=== PATIENT | female | born 1970 | race Caucasian/White ===

== ENCOUNTER 2017-04-02 22:16 | Emergency (ER) | payer MEDICARE, OTHER ==
[~2017-04-02] VITALS: Ht 157.5 cm; Wt 110.0 kg
[2017-04-02] MEDS ORDERED: TRAZ-136 PO (22:31)
[2017-04-02] MEDS ORDERED: NAPR500T3 PO (22:31)
[2017-04-02] MEDS ORDERED: GLIP10TA6 PO (22:31)
[2017-04-02] MEDS ORDERED: LOSA50TA20 PO (22:31)
[2017-04-02] MEDS ORDERED: FLUO20CA8 PO (22:31)
[2017-04-02] MEDS ORDERED: TOPR50TA PO (22:31)
[2017-04-02] MEDS ORDERED: BUTA1TAB PO (22:31)
[2017-04-02] MEDS ORDERED: METF500T13 PO (22:31)
[2017-04-02] MEDS ORDERED: OXYC1TAB23 PO (22:31)
[2017-04-02] MEDS ORDERED: PRAZ1CAP PO (22:31)
[2017-04-02] MEDS ORDERED: PEPC1TAB4 PO (22:31)
[2017-04-02] MEDS ORDERED: CETI10TA PO (22:31)
[2017-04-02] MEDS ORDERED: ALBU17IN INH (22:31)
[2017-04-03] MEDS ORDERED: ALBUTEROL 90 MCG/ACT 8GM HFA INHALER INH ONE (06:15)
[2017-04-03 06:34] VITALS: BP 126/72
--- NOTE | 2017-04-03 07:58 | REP ---
Chest x-ray: Two views. History: Cough . Comparison study: No comparison . Findings: The lungs are well inflated and free of infiltrate. The pleural angles are sharp. The heart size is normal. Pulmonary vasculature is not increased. No significant bony abnormality is seen. Impression: Negative chest x-ray. Signed by Froylan Preston MD 04/03/2017 08:18 A
== END 2017-04-03 06:37 | disposition home or self-care (01) ==
LOC: M ED 22:16
DX: J20.9 Acute bronchitis, unspecified (principal)

== ENCOUNTER → 2018-06-25 | Outpatient (REF) | payer MEDICARE | LOC: M SFHCLERA 10:51 | DX: J02.9 Acute pharyngitis, unspecified (principal) ==

== ENCOUNTER → 2018-11-04 | Outpatient (REF) | payer MEDICARE, OTHER ==
[~2018-11-04] MED LIST: ALBU17IN INH; BUTA1TAB PO; CETI10TA PO; FLUO20CA8 PO; GLIP10TA6 PO; LOSA50TA88 PO; METF500T13 PO; NAPR-885 PO; OXYC1TAB23 PO; PEPC1TAB5 PO; PRAZ1CAP PO; TOPR50TA PO; TRAZ-163 PO
[2018-11-04 22:00] LABS: CHLAMYDIA DNA AMPLIFICATION NEGATIVE (NEGATIVE); GC DNA AMPLIFICATION NEGATIVE (NEGATIVE)
== END ==
LOC: M SFHCLERA 17:34
PROVIDERS: ATTEND Physician Assistant Medical
DX: J32.0 Chronic maxillary sinusitis (principal)

== ENCOUNTER → 2018-11-29 | Outpatient (CLI) | payer MEDICARE, MEDICAID ==
--- NOTE | 2018-11-29 16:39 | REP ---
Clinical: Injury. Technique: AP and lateral views of the left tibia / fibula. Findings: No acute fracture dislocation. Skeletal structures, joint spaces, and surrounding soft tissues are normal. Impression: No acute fracture or dislocation. Electronically Signed by Manoj Herring MD 11/29/2018 04:32 P
== END ==
LOC: M LRY 16:20
PROVIDERS: ATTEND Nurse Practitioner Family
DX: S89.92XA Unspecified injury of left lower leg, initial encounter (principal); X58.XXXA Exposure to other specified factors, initial encounter; Y92.9 Unspecified place or not applicable
CPT/HCPCS: 73590; G0463

== ENCOUNTER → 2019-08-05 | Outpatient (REF) | payer MEDICARE, MEDICAID ==
[~2019-08-05] MED LIST changes: +FLUO20CA20 PO; -FLUO20CA8 PO; -TRAZ-163 PO; +TRAZ-257 PO
[2019-08-05 12:34] LABS: BASO # 0.1 10^3/uL (0.0-0.2); BASO % 0.9 % (0.0-1.0); EOS # 0.2 10^3/uL (0.0-0.5); EOS % 2.9 % (0.0-3.0); HEMATOCRIT 40.1 % (36.0-47.0); HEMOGLOBIN 13.1 g/dl (12.0-15.5); LYMPH # 1.4 10^3/uL (1.5-5.0); MEAN CORPUSCULAR HEMOGLOBIN 31.3 pg (27.0-33.0); MEAN CORPUSCULAR HGB CONC 32.7 g/dl (32.0-36.5); MEAN CORPUSCULAR VOLUME 95.9 fl (80.0-96.0); MONO # 0.4 10^3/uL (0.0-0.8); MONO % 6.8 % (0.0-5.0); NEUTROPHILS # 3.4 10^3/uL (1.5-8.5); PLATELET COUNT, AUTOMATED 220 10^3/uL (150-450); RED BLOOD COUNT 4.18 10^6/uL (4.00-5.40); WHITE BLOOD COUNT 5.5 10^3/uL (4.0-10.0)
[2019-08-05 12:50] LABS: BLOOD UREA NITROGEN 10 MG/DL (7-18); CREATININE FOR GFR 0.74 MG/DL (0.55-1.30); GLUCOSE, FASTING 225 MG/DL (70-100)
[2019-08-05 12:51] LABS: ALBUMIN 3.6 GM/DL (3.2-5.2); ALT/SGPT 20 U/L (12-78); BILIRUBIN,TOTAL 0.5 MG/DL (0.2-1.0); CALCIUM LEVEL 8.4 MG/DL (8.5-10.1); CARBON DIOXIDE LEVEL 28 MEQ/L (21-32); CHLORIDE LEVEL 105 MEQ/L (98-107); CHOLESTEROL LEVEL 232 MG/DL (<200); FREE T4 1.11 NG/DL (0.76-1.46); GLOMERULAR FILTRATION RATE > 60.0 (>58); HDL CHOLESTEROL 40 MG/DL (>40); LDL CHOLESTEROL 146 MG/DL (<100); NON-HDL-C 192 MG/DL; POTASSIUM SERUM 3.5 MEQ/L (3.5-5.1); SODIUM LEVEL 140 MEQ/L (136-145); TOTAL PROTEIN 6.7 GM/DL (6.4-8.2); TRIGLYCERIDES LEVEL 229 MG/DL (<150)
[2019-08-05 12:57] LABS: HEMOGLOBIN A1c 8.4 %
[2019-08-05 13:21] LABS: MAU/CREAT RATIO 19.6 MCG/MG (0.0-30.0)
== END ==
LOC: M SFHCPLAZ 09:44
PROVIDERS: ATTEND Physician Assistant Medical
DX: E11.3593 Type 2 diabetes mellitus with proliferative diabetic retinopathy without macular edema, bilateral (principal); I10 Essential (primary) hypertension; E78.00 Pure hypercholesterolemia, unspecified; F43.10 Post-traumatic stress disorder, unspecified
CPT/HCPCS: 36415; 80053; 80061; 82043; 83036; 84439; 84443; 85025; G0463

== ENCOUNTER 2019-11-10 09:44 | Emergency (ER) | payer MEDICARE, MEDICAID ==
[~2019-11-10] VITALS: Ht 157.5 cm; Wt 116.0 kg
[2019-11-10] MEDS ORDERED: NS 1,000 ML IV ONE (10:15)
[2019-11-10 10:53] LABS: BASO % 0.7 % (0.0-1.0); EOS # 0.2 10^3/uL (0.0-0.5); EOS % 3.3 % (0.0-3.0); HEMOGLOBIN 12.2 g/dl (12.0-15.5); LYMPH # 1.3 10^3/uL (1.5-5.0); MEAN CORPUSCULAR HEMOGLOBIN 32.4 pg (27.0-33.0); MEAN CORPUSCULAR VOLUME 98.4 fl (80.0-96.0); MONO # 0.4 10^3/uL (0.0-0.8); MONO % 6.9 % (0.0-5.0); NEUTROPHILS # 3.8 10^3/uL (1.5-8.5); NEUTROPHILS % 65.4 % (36.0-66.0); PLATELET COUNT, AUTOMATED 231 10^3/uL (150-450); RED BLOOD COUNT 3.76 10^6/uL (4.00-5.40); WHITE BLOOD COUNT 5.8 10^3/uL (4.0-10.0)
[2019-11-10 11:23] LABS: ALBUMIN 3.2 GM/DL (3.2-5.2); ALT/SGPT 32 U/L (12-78); BILIRUBIN,DIRECT 0.1 MG/DL (0.0-0.2); BILIRUBIN,TOTAL 0.4 MG/DL (0.2-1.0); BLOOD UREA NITROGEN 7 MG/DL (7-18); CALCIUM LEVEL 8.2 MG/DL (8.5-10.1); CARBON DIOXIDE LEVEL 27 MEQ/L (21-32); CHLORIDE LEVEL 106 MEQ/L (98-107); CK-MB VALUE MASS 1.1 NG/ML (<3.6); CPK CREATINE PHOSPHOKINASE 24 U/L (26-192); CREATININE FOR GFR 0.67 MG/DL (0.55-1.30); FREE T4 1.09 NG/DL (0.76-1.46); GLOMERULAR FILTRATION RATE > 60.0 (>58); GLUCOSE, FASTING 207 MG/DL (70-100); MAGNESIUM LEVEL 1.9 MG/DL (1.8-2.4); MB/CK RELATIVE INDEX 4.58 (< OR =4); POTASSIUM SERUM 4.1 MEQ/L (3.5-5.1); SODIUM LEVEL 139 MEQ/L (136-145); TOTAL PROTEIN 6.4 GM/DL (6.4-8.2); TROPONIN I < 0.02 NG/ML (< 0.10)
--- NOTE | 2019-11-10 11:25 | REP ---
Portable chest x-ray: Sitting AP view. History: Syncope. Comparison chest x-ray: April 03, 2017. Findings: The lungs are well inflated and free of infiltrate. Pleural angles are sharp. Heart size is normal. Pulmonary vasculature is not increased. No significant bony abnormality. Impression: Negative portable chest x-ray. Electronically Signed by Froylan Preston MD 11/10/2019 11:17 A
--- NOTE | 2019-11-10 11:36 | REP ---
Head CT without contrast: History: Syncope. Comparison study: No comparison study. CT findings: Bone window settings demonstrate an intact bony calvarium. There is no evidence of skull fracture or incidental bony calvarial lesion. The visualized paranasal sinuses appear clear. No intraorbital abnormality is seen. On soft tissue window setting images; the lateral, third, and fourth ventricles are normal in size and position. Fuentes-white differentiation pattern is normal above and below the tentorium. There are is no evidence of intracranial hemorrhage. No mass, edema, infarction, or midline shift is seen. No extra-axial fluid collection is appreciated. Impression: Negative noncontrast head CT. Electronically Signed by Froylan Preston MD 11/10/2019 11:27 A
[2019-11-10 12:05] VITALS: BP 145/70
[2019-11-10] MEDS ORDERED: LAMO100T3 (12:26)
[2019-11-10] MEDS ORDERED: SITA50TAB (12:26)
[2019-11-10] MEDS ORDERED: METO1TAB7 (12:26)
[2019-11-10] MEDS ORDERED: DIAZ10TA2 (12:26)
[2019-11-10] MEDS ORDERED: ROSU40TA4 (12:26)
[2019-11-10] MEDS ORDERED: QUET100T2 (12:26)
[2019-11-10] MEDS ORDERED: OMEP-218 (12:26)
--- NOTE | 2019-11-11 08:25 | ECGEPIP ---
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
== END 2019-11-10 12:32 | disposition home or self-care (01) ==
LOC: M ED 09:44
DX: R42 Dizziness and giddiness (principal); R55 Syncope and collapse; E11.9 Type 2 diabetes mellitus without complications; I10 Essential (primary) hypertension; K21.9 Gastro-esophageal reflux disease without esophagitis; G43.909 Migraine, unspecified, not intractable, without status migrainosus; Z88.5 Allergy status to narcotic agent; Z88.1 Allergy status to other antibiotic agents

== ENCOUNTER → 2019-11-16 | Outpatient (CLI) | payer MEDICARE, MEDICAID ==
[~2019-11-16] MED LIST changes: +DIAZ10TA2; +LAMO100T3; +METO1TAB7; +OMEP-218; +QUET100T2; +ROSU40TA4; +SITA50TAB
[2019-11-16 19:17] LABS: APPEARANCE, URINE TURBID (CLEAR); BACTERIA, URINE AUTO 1+ (NEGATIVE); BILIRUBIN, URINE AUTO NEGATIVE (NEGATIVE); BLOOD, URINE BLOOD 3+ (NEGATIVE); COLOR, URINE AMBER (YELLOW); GLUCOSE, URINE (UA) AUTO 1+ mg/dL (NEGATIVE); KETONE, URINE AUTO TRACE mg/dL (NEGATIVE); LEUKOCYTE ESTERASE, URINE AUTO 3+ (NEGATIVE); MUCUS, URINE SMALL (NEGATIVE); NITRITE, URINE AUTO NEGATIVE (NEGATIVE); PROTEIN, URINE AUTO 1+ mg/dL (NEGATIVE); RBC, URINE AUTO 35 /HPF (0-3); SQUAMOUS EPITHELIAL CELL UR AU 4 /HPF (0-6); TRANSITIONAL EPITHELIAL AUTO 2 /HPF; UROBILINOGEN, URINE AUTO 0.2 mg/dL (0.0-2.0); WBC, URINE AUTO TNTC /HPF (0-3)
== END ==
LOC: M WHC 09:09
PROVIDERS: ATTEND Advanced Practice Midwife
DX: Z12.4 Encounter for screening for malignant neoplasm of cervix (principal); N93.8 Other specified abnormal uterine and vaginal bleeding; R30.0 Dysuria
CPT/HCPCS: 81001; 87088; 87186; 87624; G0123; G0463

== ENCOUNTER → 2019-11-27 | Outpatient (CLI) | payer MEDICARE, MEDICAID ==
--- NOTE | 2019-11-28 12:51 | REP ---
PELVIC ULTRASOUND: Real-time sonographic evaluation pelvis performed utilizing transabdominal and endovaginal technique. Bladder measures 7.7 x 5.4 cm. The uterus is enlarged and heterogeneous measuring 13.6 x 6.7 x 7.9 cm. No discrete fibroid is seen. Endometrial thickness is 13 mm. There are subcentimeter nabothian cysts in the region of the cervix. Study is limited due to patient body habitus. Right ovary measures 2.3 x 3.1 x 2.3 cm and left ovary 2.0 x 3.3 x 2.9 cm. Dominant follicle right ovary measures 2.2 cm in diameter. Doppler evaluation of the left ovary demonstrates no evidence of torsion. No Doppler evaluation was performed of the right ovary. There is a small echogenic focus in the right ovary which measures 1.1 x 1.3 x 0.7 cm. This may represent a small hemorrhagic follicle or very small dermoid. IMPRESSION: Enlarged heterogeneous uterus without a discrete fibroid seen. Endometrial thickness 13 mm. Dominant follicle right ovary 2.2 cm. Echogenic structure in the right ovary with a maximum diameter of 1.3 cm may represent a complex follicle or small dermoid.
--- NOTE | 2019-12-09 16:37 | REPMRS ---
Patient History The patient states she had a clinical breast exam in October 2019. Family history of unknown cancer at age 50 or over in maternal grandfather. 3D TOMOSYNTHESIS WAS PERFORMED. [facility] for [facility] 9.6%. RASHI Springer. Digital Woman Screen Mammo: November 27, 2019 - Exam #: [id number] Bilateral CC and MLO view(s) were taken. Technologist: nAa Luisa Mtz Technologist FINDINGS: There are scattered fibroglandular densities. There has been no change in the appearance of the mammogram from the prior studies. There is a mild amount of residual fibroglandular tissue which is fairly symmetric. There is no interval development of dominant mass, architectural distortion, or clustered microcalcification suggestive of malignancy. Assessment: BI-RADS/ACR category 1 mammogram. Negative Mammogram. Recommendation Routine screening mammogram in 1 year (for women over age 40). This mammogram was interpreted with the aid of an FDA-approved computer-aided dectection system. Electronically Signed By: Luisito Preston MD 12/09/19 [id number]
== END ==
LOC: M WHC 10:29
PROVIDERS: ATTEND Advanced Practice Midwife
DX: Z12.31 Encounter for screening mammogram for malignant neoplasm of breast (principal); N85.2 Hypertrophy of uterus; D25.9 Leiomyoma of uterus, unspecified

== ENCOUNTER → 2020-01-04 | Outpatient (REF) | payer MEDICARE, MEDICAID ==
[2020-01-04 13:48] LABS: BASO # 0.1 10^3/uL (0.0-0.2); BASO % 0.6 % (0.0-1.0); EOS # 0.2 10^3/uL (0.0-0.5); EOS % 2.3 % (0.0-3.0); HEMATOCRIT 44.2 % (36.0-47.0); LYMPH # 1.6 10^3/uL (1.5-5.0); LYMPH % 18.9 % (24.0-44.0); MEAN CORPUSCULAR HEMOGLOBIN 31.5 pg (27.0-33.0); MEAN CORPUSCULAR HGB CONC 31.7 g/dl (32.0-36.5); MEAN CORPUSCULAR VOLUME 99.3 fl (80.0-96.0); MONO # 0.5 10^3/uL (0.0-0.8); MONO % 5.9 % (0.0-5.0); NEUTROPHILS % 71.9 % (36.0-66.0); RED BLOOD COUNT 4.45 10^6/uL (4.00-5.40); WHITE BLOOD COUNT 8.4 10^3/uL (4.0-10.0)
[2020-01-04 13:56] LABS: INR 0.95; PARTIAL THROMBOPLASTIN TIME 25.1 SECONDS (25.0-38.4); PROTHROMBIN TIME 12.4 SECONDS (11.8-14.0)
[2020-01-04 16:06] LABS: ALBUMIN 3.9 GM/DL (3.2-5.2); ALT/SGPT 27 U/L (12-78); BILIRUBIN,TOTAL 0.6 MG/DL (0.2-1.0); BLOOD UREA NITROGEN 9 MG/DL (7-18); CALCIUM LEVEL 9.3 MG/DL (8.5-10.1); CARBON DIOXIDE LEVEL 25 MEQ/L (21-32); CHLORIDE LEVEL 103 MEQ/L (98-107); CREATININE FOR GFR 0.78 MG/DL (0.55-1.30); GLOMERULAR FILTRATION RATE > 60.0 (>58); GLUCOSE, FASTING 212 MG/DL (70-100); NT-PRO BNP 160 PG/ML (<125); POTASSIUM SERUM 4.8 MEQ/L (3.5-5.1); SODIUM LEVEL 136 MEQ/L (136-145); TOTAL PROTEIN 7.5 GM/DL (6.4-8.2); VITAMIN B12 LEVEL 452 PG/ML (247-911)
== END ==
LOC: M SFHCPLAZ 12:15
PROVIDERS: ATTEND Family Medicine
DX: E11.3593 Type 2 diabetes mellitus with proliferative diabetic retinopathy without macular edema, bilateral (principal); N93.9 Abnormal uterine and vaginal bleeding, unspecified
CPT/HCPCS: 36415; 80053; 82607; 83880; 85025; 85610; 85730; 93005; G0463

== ENCOUNTER → 2020-01-13 | Outpatient (REF) | payer MEDICARE, MEDICAID | LOC: M SFHCWAGY 13:05 | PROVIDERS: ATTEND Obstetrics & Gynecology | DX: N93.9 Abnormal uterine and vaginal bleeding, unspecified (principal) ==

== ENCOUNTER 2020-02-12 07:15 | Day surgery (SDC) | payer MEDICARE, MEDICAID ==
[~2020-02-12 07:15] MED LIST changes: +BUPIVACAINE HCL 0.25% 30ML VIAL As Ordered ONE; +METHYLENE BLUE 0.5% (5MG/ML) 10 ML AMP (PROVAYBLUE) As Ordered ONE; +ceFAZolin 2 GM/D5W 50 ML IV BAG (J0690 PER 500MG) As Ordered ONE; +ceFAZolin 2 GM/D5W 50 ML IV BAG (J0690 PER 500MG) ONE
[2020-02-12] MEDS ORDERED: propofoL 200 MG/20 ML VIAL As Ordered ONE (07:19)
[2020-02-12] MEDS ORDERED: LIDOCAINE 2% 100MG/5ML SDV (FOR ANES.) As Ordered ONE (07:19)
[2020-02-12] MEDS ORDERED: ROCURONIUM BROMIDE 50 MG/5 ML VIAL As Ordered ONE ×3 (07:19→09:36)
[2020-02-12] MEDS ORDERED: dexameTHASONE 4 MG/ML 1ML VIAL (J1100 PER 1MG) As Ordered ONE (07:19)
[2020-02-12] MEDS ORDERED: fentaNYL 250 MCG/5 ML INJECTION (J3010) As Ordered ONE (07:20)
[2020-02-12] MEDS ORDERED: MIDAZOLAM INJ 2MG/2ML VIAL (J2250 PER 1MG) As Ordered ONE (07:21)
[2020-02-12] MEDS ORDERED: ACETAMINOPHEN 1000MG 100ML IV BTL (OFIRMEV) (J0131 PER 10MG) As Ordered ONE (09:30)
[2020-02-12] MEDS ORDERED: ESMOLOL INJ 100MG/10ML VIAL As Ordered ONE (09:32)
[2020-02-12] MEDS ORDERED: PHENYLephrine HCL 500 MCG/5 ML (100MCG/ML) SYRINGE (J2370) As Ordered ONE (09:46)
[2020-02-12] MEDS ORDERED: ALBUTEROL 6.7GM INHALER **FOR ANES. CART/OMNICELL ONLY As Ordered ONE (10:18)
[2020-02-12] MEDS ORDERED: LABETALOL 100MG/20ML VIAL As Ordered ONE (10:49)
[2020-02-12] MEDS ORDERED: SUGAMMADEX SODIUM 500 MG/5 ML VIAL (BRIDION) As Ordered ONE (11:10)
[2020-02-12] MEDS ORDERED: METOCLOPRAMIDE INJ 10MG/2ML VIAL (J2765 PER 1) As Ordered ONE (11:13)
[2020-02-12] MEDS ORDERED: ceFAZolin 1GM VIAL (J0690 PER 500MG) ONE (11:49)
[2020-02-12] MEDS ORDERED: metroNIDAZOLE/NACL 500MG(5MG/ML) 100ML BAG (S0030) ONE (11:49)
[2020-02-12] MEDS ORDERED: ALBUTEROL SULFATE 2.5 MG/0.5 ML INH NEB SOLN ONE (11:49)
[2020-02-12] MEDS ORDERED: ceFAZolin 1GM VIAL (J0690 PER 500MG) As Ordered ONE (11:49)
[2020-02-12] MEDS ORDERED: HumaLOG INSULIN (NovoLOG) PER UNIT As Ordered ONE ×3 (11:53→21:48)
[2020-02-12] MEDS ORDERED: metroNIDAZOLE/NACL 500MG(5MG/ML) 100ML BAG (S0030) As Ordered ONE (12:16)
[2020-02-12] MEDS ORDERED: ALBUTEROL SULFATE 2.5 MG/0.5 ML INH NEB SOLN As Ordered ONE (12:22)
[2020-02-12] MEDS ORDERED: PERCOCET 5MG/325MG TAB ONE ×2 (15:51→21:48)
[2020-02-12] MEDS ORDERED: PERCOCET 5MG/325MG TAB As Ordered ONE ×2 (15:51→21:49)
[2020-02-12] MEDS ORDERED: KETOROLAC 30 MG/ML 1ML VIAL ONE (17:38)
[2020-02-12] MEDS ORDERED: HumaLOG INSULIN (NovoLOG) PER UNIT ONE ×2 (17:38→21:48)
[2020-02-12] MEDS ORDERED: KETOROLAC 30 MG/ML 1ML VIAL As Ordered ONE (17:38)
[2020-02-12] MEDS ORDERED: QUEtiapine FUMARATE 50 MG TAB ONE (21:48)
[2020-02-12] MEDS ORDERED: QUEtiapine FUMARATE 50 MG TAB As Ordered ONE (21:49)
[2020-02-13] MEDS ORDERED: KETOROLAC 30 MG/ML 1ML VIAL ONE ×2 (05:38→12:18)
[2020-02-13] MEDS ORDERED: KETOROLAC 30 MG/ML 1ML VIAL As Ordered ONE ×2 (05:38→12:18)
[2020-02-13] MEDS ORDERED: diazePAM 5 MG TAB ONE (09:08)
[2020-02-13] MEDS ORDERED: HumaLOG INSULIN (NovoLOG) PER UNIT As Ordered ONE ×2 (09:08→12:19)
[2020-02-13] MEDS ORDERED: FLUoxetine 20 MG CAP ONE (09:08)
[2020-02-13] MEDS ORDERED: HumaLOG INSULIN (NovoLOG) PER UNIT ONE ×2 (09:08→12:18)
[2020-02-13] MEDS ORDERED: LOSARTAN 25 MG TAB As Ordered ONE (09:08)
[2020-02-13] MEDS ORDERED: PERCOCET 5MG/325MG TAB ONE (09:08)
[2020-02-13] MEDS ORDERED: METOPROLOL SUCC (TopROL XL) 50MG **XL** TAB ONE (09:08)
[2020-02-13] MEDS ORDERED: FLUoxetine 20 MG CAP As Ordered ONE (09:09)
[2020-02-13] MEDS ORDERED: METOPROLOL SUCC (TopROL XL) 50MG **XL** TAB As Ordered ONE (09:09)
[2020-02-13] MEDS ORDERED: lamoTRIgine 100MG TAB As Ordered ONE (09:09)
[2020-02-13] MEDS ORDERED: diazePAM 5 MG TAB As Ordered ONE (09:21)
[2020-02-13] MEDS ORDERED: PERCOCET 5MG/325MG TAB As Ordered ONE (09:21)
[2020-02-13] MEDS ORDERED: SITagliptin 50 MG TAB (JANUVIA) ONE (14:42)
[2020-02-13] MEDS ORDERED: SITagliptin 50 MG TAB (JANUVIA) As Ordered ONE (14:42)
[2020-02-13] MEDS ORDERED: glipiZIDE XL 5 MG TABCR As Ordered ONE (14:42)
[2020-02-13] MEDS ORDERED: glipiZIDE XL 5 MG TABCR ONE (14:42)
--- NOTE | 2020-04-07 11:34 | RO ---
DATE OF PROCEDURE: February 12, 2020 PREOPERATIVE DIAGNOSES: * Abnormal uterine bleeding. * Enlarged uterus. POSTOPERATIVE DIAGNOSES: * Abnormal uterine bleeding. * Enlarged uterus. * Severe pelvic adhesive disease. PROCEDURES PERFORMED: * Robotic-assisted total laparoscopic hysterectomy, lysis of adhesions, and opportunistic bilateral salpingectomy. * Cystoscopy. SURGEON: Juan David Mallory MD CONTINUOUS PICKLING LINE PICKLER HELPER: Noreen De Los Santos ANESTHESIA TYPE: General endotracheal anesthesia. SPECIMENS SENT TO PATHOLOGY: * Uterus. * Cervix. * Fallopian tubes bilaterally. ESTIMATED BLOOD LOSS: 100 mL FLUIDS REPLACED: 1800 mL lactated Ringer's. DRAINS: Askew catheter. URINE OUTPUT: 250 mL. COMPLICATIONS: None. PREOPERATIVE ANTIBIOTICS: Ancef 2 grams IV x1. INTRAOPERATIVE FINDINGS: * Enlarged uterus approximately 14-15 cm at greatest dimension, 236 grams after contained morcellation. * Normal adnexa and ovaries bilaterally. * Severe pelvic adhesive disease noted in the anterior and posterior cul-de-sacs. INDICATIONS: The patient has a longstanding history of abnormal uterine bleeding and an enlarged uterus. She has chosen to proceed with definitive therapy/treatment with a hysterectomy. She was deemed a good candidate for an attempt at minimally invasive hysterectomy. PROCEDURE: The patient was counseled and consented on the risks, benefits, indications, and alternatives of the procedure. Informed consent was obtained. She was taken to the operating room with an IV running and placed on the operating room table in the dorsal supine position. General anesthesia was administered and the airway secured without any difficulty. She was then placed in the high lithotomy position. She was prepared and draped in normal sterile fashion in the low lithotomy position. A timeout was performed per protocol. A Askew catheter was placed under sterile condition. A sterile speculum was placed into the vagina with good visualization of the cervix. The anterior lip of the cervix was grasped with a single-toothed tenaculum and downward traction was applied. The cervix was then sequentially dilated with Coleman dilators. A 0- Vicryl stitch was placed in the anterior and posterior lips of the cervix. The Atmospheirare uterine manipulator was then placed into the intrauterine cavity and around the cervix after the uterus was sounded to 14-15 cm. The sterile speculum was removed. Attention was then turned to the abdomen after a glove switch. Then, 0.25% Marcaine was injected into the umbilicus. A Veress needle was placed through the umbilicus into the intraperitoneal cavity without any difficulty, ease of flow of normal saline, negative return on aspiration, and a positive drop test, and the opening pressure upon insufflation was 8 mmHg. The abdomen was insufflated with 2 liters of gas. The Veress needle was removed. A midline supraumbilical 8- mm incision was made with an 11-blade and through this incision, the robotic laparoscopic trocar was placed. Intraperitoneal placement was confirmed. No incidental injury or bleeding was noted. The patient was then placed in steep Trendelenburg. The remaining port sites were placed along the upper abdomen, two on the left and two on the right, each through 8-mm incisions. Each cannula/trocar was placed under direct visualization without any difficulty or complication. The robot was then docked in typical fashion. The instruments were placed intraabdominally. My attention was then turned to the robotic console. Given the extensive adhesive disease to the anterior abdominal wall, the omental adhesions were taken down with both blunt and sharp dissection and with electrocautery. Excellent hemostasis was achieved. The omentum was mobilized off of the anterior abdominal wall and adequate visualization of the uterus was achieved. Attention was first turned to the salpingectomy. Both the right and left fallopian tubes were excised using the vessel sealer by undermining and dissecting the underlying mesosalpinx to the level of the cornu. Each fallopian tube, to include the fimbriated end, was brought through the cannula without any difficulty. Attention was then turned to the right side. The right utero-ovarian ligament was sequentially clamped, coagulated, and cut with a vessel sealer device. The right round ligament was then clamped, coagulated, and cut using a vessel sealer device. The vesicouterine peritoneum was then dissected off. A meticulous dissection had to be performed to address and reduce all of the pelvic adhesions that were surrounding the lower uterine segment and the bladder. In similar fashion, attention was turned to the left side. The left utero-ovarian ligament was sequentially clamped, coagulated, and cut with the vessel sealer device. The left round ligament was then clamped, coagulated, and cut with the vessel sealer device. The vesicouterine peritoneum was then dissected to complete the bladder flap. The anterior cup of the VCare could be visualized and haptically palpated. The posterior portion of the cup could also be delineated. At this point, both the right and left uterine vasculature was clamped, coagulated, and cut until there was excellent blanching of the uterus indicated the blood supply to the uterus had been obliterated. The cup was delineated and the monopolar bhupinder were used to create the colpotomy. After a circumferential incision to create the colpotomy, the uterus was then found to be too large to bring through the colpotomy in one piece; therefore, a Talia containment extraction system was placed. The bag was placed through the colpotomy into the intraabdominal cavity. The specimen was placed into the bag. The ring of the bag was brought out through the vagina. The plastic guard was placed into the vagina. The uterus and cervix were then morcellated in sequential fashion until the entire specimen was removed from the intraabdominal cavity. Once the specimens in the bag were removed from the cavity and the vagina, a glove with a laparotomy sponge was placed in the vagina to maintain pneumoperitoneum. Attention was turned back to the robotic console. The vaginal cuff was closed with a V-Loc suture in running fashion. During this time, bleeders were cauterized with the Force bipolar cautery and excellent hemostasis was noted. Small bleeders in proximity to the rectum were cauterized. I did consult Dr. Lou of General Surgery, who felt that there was no risk of injury to the bowel wall. A very small area had been cauterized superficial to the bowel wall along the epiploica. Given the hemostasis, Ariana was placed over the vaginal cuff. The gas was released from the abdomen. All instruments were removed from the abdomen. The patient was taken out of Trendelenburg. Attention was turned back to the pelvis. The Askew catheter was removed. The cystoscopy was performed with no evidence of bladder injury or suture material within the wall of the bladder. Bilateral ureteral jets were visualized after IV infusion of methylene blue. The cystoscope was removed. The bladder was drained of all of the fluid. The Askew catheter was kept out. The vagina was then copiously irrigated. Minimal vaginal bleeding was noted. The cuff was palpated and noted to be completely intact. A glove switch was performed. Attention was turned back to the abdomen. The cannulae were removed after the gas was released from the abdomen. The skin incisions were closed with 4-0 Monocryl in subcuticular fashion and reinforced with Dermabond. Sponge, needle, and instrument counts were correct per protocol throughout the case. The patient tolerated the entire procedure very well. She was transferred to the PACU in good and stable condition. LEIGHANN
[2020-04-10 08:37] LABS: HEMATOCRIT 41.4 % (36.0-47.0); HEMOGLOBIN 13.4 g/dl (12.0-15.5); MEAN CORPUSCULAR HEMOGLOBIN 31.9 pg (27.0-33.0); MEAN CORPUSCULAR HGB CONC 32.4 g/dl (32.0-36.5); MEAN CORPUSCULAR VOLUME 98.6 fl (80.0-96.0); PLATELET COUNT, AUTOMATED 241 10^3/uL (150-450); WHITE BLOOD COUNT 8.7 10^3/uL (4.0-10.0)
[2020-04-12 14:50] LABS: HEMOGLOBIN 10.7 g/dl (12.0-15.5); RED BLOOD COUNT 3.38 10^6/uL (4.00-5.40); WHITE BLOOD COUNT 8.7 10^3/uL (4.0-10.0)
[2020-04-12 14:51] LABS: HEMATOCRIT 34.2 % (36.0-47.0); MEAN CORPUSCULAR HEMOGLOBIN 31.7 pg (27.0-33.0); MEAN CORPUSCULAR HGB CONC 31.3 g/dl (32.0-36.5); MEAN CORPUSCULAR VOLUME 101.2 fl (80.0-96.0); PLATELET COUNT, AUTOMATED 176 10^3/uL (150-450)
== END 2020-02-12 14:45 | disposition home or self-care (01) ==
LOC: M SDC 07:15
PROVIDERS: ATTEND Obstetrics & Gynecology
DX: N93.9 Abnormal uterine and vaginal bleeding, unspecified (principal); N80.9 Endometriosis, unspecified; N73.6 Female pelvic peritoneal adhesions (postinfective); F31.9 Bipolar disorder, unspecified; E11.9 Type 2 diabetes mellitus without complications; I10 Essential (primary) hypertension; K21.9 Gastro-esophageal reflux disease without esophagitis; F32.9 Major depressive disorder, single episode, unspecified; F43.10 Post-traumatic stress disorder, unspecified; G43.909 Migraine, unspecified, not intractable, without status migrainosus; Z79.899 Other long term (current) drug therapy; Z88.5 Allergy status to narcotic agent; Z88.1 Allergy status to other antibiotic agents
CPT/HCPCS: 58571; 85027; 86850; 86900; 86901; 88307; J0131; J0690; J1100; J1885; J2250; J2370; J2765; J3010; Q9968

== ENCOUNTER → 2020-07-18 | Outpatient (REF) | payer MEDICARE, MEDICAID ==
[~2020-07-18] MED LIST changes: -BUPIVACAINE HCL 0.25% 30ML VIAL As Ordered ONE; -METHYLENE BLUE 0.5% (5MG/ML) 10 ML AMP (PROVAYBLUE) As Ordered ONE; -ceFAZolin 2 GM/D5W 50 ML IV BAG (J0690 PER 500MG) As Ordered ONE; -ceFAZolin 2 GM/D5W 50 ML IV BAG (J0690 PER 500MG) ONE
== END ==
LOC: M SFHCWAGY 10:16
PROVIDERS: ATTEND Advanced Practice Midwife
DX: R39.15 Urgency of urination (principal)

== ENCOUNTER → 2020-11-29 | Outpatient (REF) | payer MEDICARE, MEDICAID ==
[2020-11-29 19:10] LABS: HEMOGLOBIN A1c 10.8 %
[2020-11-29 19:17] LABS: ALBUMIN 3.8 GM/DL (3.2-5.2); ALT/SGPT 28 U/L (12-78); BILIRUBIN,TOTAL 0.8 MG/DL (0.2-1.0); BLOOD UREA NITROGEN 8 MG/DL (7-18); CALCIUM LEVEL 9.4 MG/DL (8.5-10.1); CARBON DIOXIDE LEVEL 28 MEQ/L (21-32); CHLORIDE LEVEL 100 MEQ/L (98-107); CHOLESTEROL LEVEL 261 MG/DL (<200); CHOLESTEROL RISK RATIO 6.525 (<5); CREATININE FOR GFR 0.76 MG/DL (0.55-1.30); GLOMERULAR FILTRATION RATE > 60.0 (>58); GLUCOSE, FASTING 321 MG/DL (70-100); HDL CHOLESTEROL 40 MG/DL (>40); NON-HDL-C 221 MG/DL; POTASSIUM SERUM 4.3 MEQ/L (3.5-5.1); SODIUM LEVEL 135 MEQ/L (136-145); TOTAL PROTEIN 7.2 GM/DL (6.4-8.2); TRIGLYCERIDES LEVEL 437 MG/DL (<150)
[2020-11-29 19:28] LABS: MALB URINE SIEMENS 46.3 MG/L; MAU/CREAT RATIO 24.7 MCG/MG (0.0-30.0)
== END ==
LOC: M SFHCPLAZ 13:51
PROVIDERS: ATTEND Physician Assistant Medical
DX: E11.3593 Type 2 diabetes mellitus with proliferative diabetic retinopathy without macular edema, bilateral (principal); E78.00 Pure hypercholesterolemia, unspecified
CPT/HCPCS: 36415; 80053; 80061; 82043; 83036; G0463

== ENCOUNTER 2021-01-31 22:47 | Emergency (ER) | payer MEDICARE, MEDICAID ==
[~2021-01-31] VITALS: Ht 157.5 cm; Wt 111.8 kg
[~2021-01-31 22:47] MED LIST changes: -FLUO-96 PO; +FLUO20CA20 PO; -LOSA50TA28 PO; +LOSA50TA88 PO; -OMEP-173; +OMEP-218
[2021-02-01] MEDS ORDERED: ONDANSETRON 4MG/2ML VIAL IV ONE (00:30)
[2021-02-01] MEDS ORDERED: NS 500 ML IV ONE (00:30)
[2021-02-01 00:37] LABS: BASO # 0.1 10^3/uL (0.0-0.2); EOS # 0.1 10^3/uL (0.0-0.5); EOS % 2.4 % (0.0-3.0); HEMOGLOBIN 15.9 g/dl (12.0-15.5); LYMPH # 1.5 10^3/uL (1.5-5.0); LYMPH % 25.5 % (24.0-44.0); MEAN CORPUSCULAR HEMOGLOBIN 34.7 pg (27.0-33.0); MEAN CORPUSCULAR HGB CONC 34.6 g/dl (32.0-36.5); MEAN CORPUSCULAR VOLUME 100.4 fl (80.0-96.0); MONO # 0.4 10^3/uL (0.0-0.8); MONO % 7.1 % (2.0-8.0); NEUTROPHILS # 3.7 10^3/uL (1.5-8.5); NEUTROPHILS % 63.2 % (36.0-66.0); PLATELET COUNT, AUTOMATED 197 10^3/uL (150-450); RED BLOOD COUNT 4.58 10^6/uL (4.00-5.40); WHITE BLOOD COUNT 5.9 10^3/uL (4.0-10.0)
[2021-02-01] MEDS ORDERED: ALPRAZolam 0.25 MG TAB PO ONE (00:40)
[2021-02-01] MEDS ORDERED: ACETAMINOPHEN *IV* 1,000 MG in IV 1 EA IV ONE (00:40)
[2021-02-01 01:05] LABS: ALBUMIN 3.7 GM/DL (3.2-5.2); ALT/SGPT 29 U/L (12-78); BILIRUBIN,DIRECT 0.1 MG/DL (0.0-0.2); BILIRUBIN,TOTAL 0.6 MG/DL (0.2-1.0); BLOOD UREA NITROGEN 10 MG/DL (7-18); CALCIUM LEVEL 8.5 MG/DL (8.5-10.1); CARBON DIOXIDE LEVEL 29 MEQ/L (21-32); CHLORIDE LEVEL 103 MEQ/L (98-107); CK-MB VALUE MASS 6.3 NG/ML (<3.6); CPK CREATINE PHOSPHOKINASE 50 U/L (26-192); CREATININE FOR GFR 0.65 MG/DL (0.55-1.30); FREE T4 0.88 NG/DL (0.76-1.46); GLOMERULAR FILTRATION RATE > 60.0 (>58); GLUCOSE, FASTING 337 MG/DL (70-100); LIPASE 274 U/L (73-393); NT-PRO BNP 378 PG/ML (<125); POTASSIUM SERUM 4.8 MEQ/L (3.5-5.1); SODIUM LEVEL 139 MEQ/L (136-145); TROPONIN I < 0.02 NG/ML (< 0.10)
--- NOTE | 2021-02-01 02:56 | REPVR ---
PROCEDURE INFORMATION: Exam: XR Chest Exam date and time: 02/01/21 (12:40am) Age: 50 years old Clinical indication: Chest pain TECHNIQUE: Imaging protocol: Portable CXR Views: 1 view COMPARISON: Portable CXR of 11/10/19 FINDINGS: Lungs: Unremarkable. No consolidation. Pleural spaces: No pleural effusions. No pneumothorax. Mild elevation of the right hemidiaphragm on changed. Heart/Mediastinum: Unremarkable. No cardiomegaly. Bones/joints: Unremarkable. IMPRESSION: No acute findings. Lungs remain clear. Electronically signed by: Talia Caballero On 02/01/2021 02:55:25 AM
[2021-02-01 04:48] LABS: CK-MB VALUE MASS 4.4 NG/ML (<3.6); CPK CREATINE PHOSPHOKINASE 31 U/L (26-192); MB/CK RELATIVE INDEX 14.19 (< OR =4); TROPONIN I < 0.02 NG/ML (< 0.10)
[2021-02-01 05:15] VITALS: BP 145/80
--- NOTE | 2021-02-01 06:05 | ECGEPIP ---
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
--- NOTE | 2021-02-01 06:07 | ECGEPIP ---
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
== END 2021-02-01 05:27 | disposition home or self-care (01) ==
LOC: M ED 22:47
DX: R07.89 Other chest pain (principal); R11.10 Vomiting, unspecified; E11.9 Type 2 diabetes mellitus without complications; I10 Essential (primary) hypertension; E78.5 Hyperlipidemia, unspecified; F42.9 Obsessive-compulsive disorder, unspecified; F33.9 Major depressive disorder, recurrent, unspecified; F43.10 Post-traumatic stress disorder, unspecified; Z79.899 Other long term (current) drug therapy; Z79.84 Long term (current) use of oral hypoglycemic drugs; Z88.1 Allergy status to other antibiotic agents; Z88.5 Allergy status to narcotic agent; Z87.891 Personal history of nicotine dependence
CPT/HCPCS: 36415; 71045; 80048; 80053; 80061; 80076; 82550; 82553; 83036; 83690; 83880; 84439; 84443; 84484; 85025; 93005; 93041; 94760; 96361; 96365; 96375; 99285; J0131; J2405

== ENCOUNTER → 2021-01-31 | Outpatient (CLI) | payer MEDICARE, MEDICAID ==
[~2021-01-31] MED LIST changes: +FLUO-96 PO; -FLUO20CA20 PO; +LOSA50TA28 PO; -LOSA50TA88 PO; +OMEP-173; -OMEP-218
[2021-01-31 13:52] LABS: HEMOGLOBIN A1c 10.9 %
[2021-01-31 14:10] LABS: ALBUMIN 3.7 GM/DL (3.2-5.2); ALT/SGPT 27 U/L (12-78); BILIRUBIN,TOTAL 0.8 MG/DL (0.2-1.0); BLOOD UREA NITROGEN 10 MG/DL (7-18); CARBON DIOXIDE LEVEL 29 MEQ/L (21-32); CHLORIDE LEVEL 100 MEQ/L (98-107); CHOLESTEROL LEVEL 216 MG/DL (<200); CREATININE FOR GFR 0.66 MG/DL (0.55-1.30); GLOMERULAR FILTRATION RATE > 60.0 (>58); GLUCOSE, FASTING 353 MG/DL (70-100); HDL CHOLESTEROL 45 MG/DL (>40); LDL CHOLESTEROL 102 MG/DL (<100); NON-HDL-C 171 MG/DL; POTASSIUM SERUM 4.7 MEQ/L (3.5-5.1); SODIUM LEVEL 137 MEQ/L (136-145); TRIGLYCERIDES LEVEL 344 MG/DL (<150)
== END ==
LOC: M PLALAB 10:55
PROVIDERS: ATTEND Physician Assistant Medical
DX: E11.3593 Type 2 diabetes mellitus with proliferative diabetic retinopathy without macular edema, bilateral (principal); E78.00 Pure hypercholesterolemia, unspecified

== ENCOUNTER → 2021-02-17 | Outpatient (CLI) | payer MEDICARE, MEDICAID ==
--- NOTE | 2021-02-17 15:45 | REPMRS ---
Patient History The patient states she had a clinical breast exam on 02/17/2021. Patient is postmenopausal. Family history of unknown cancer at age 50 or over in maternal grandfather, breast cancer at age 47 in maternal aunt. No Hormone Replacement Therapy Patient states no breast complaints today. Patient has signed MRS History Sheet. Digital Woman Screen Mammo: February 17, 2021 - Exam #: [id number] Bilateral CC and MLO view(s) were taken. Technologist: Elizabet Billy, Associate Professor Of Automation Prior study comparison: November 27, 2019, bilateral digital woman screen mammo performed at [facility]. FINDINGS: There are scattered fibroglandular densities. Screening. Digital screening (2D) mammography was performed bilaterally in the CC and MLO projections. Additionally, breast tomosynthesis (3D mammography) was performed bilaterally in the CC and MLO projections. Todays exam was compared to the prior exam/exams. By history, the patient has no complaints of a palpable breast abnormality or other significant breast complaints. The breasts are unchanged in size and shape. There are no sabrina-soft tissue densities or spiculated masses. There is no internal architectural distortion. There are no suspicious sabrina-calcific clusters. Skin thickening or nipple retraction is not present. IMPRESSION: BI-RADS Category 2- Benign Findings. There is no evidence of malignant alteration of the breasts. Followup examination recommended in one year. The Volpara volumetric breast density category is B, there are scattered areas of fibroglandular densities. This mammogram was [facility],an FDA approved computer aided detection system for mammography. The lifetime Tyrer-Cuzick score is 12.7 % Negative x-ray reports should not delay surgical consultation if a dominant or clinically suspicious mass is present. Not all breast cancers can be identified by mammography. Therefore, we recommend that you continue to perform regular breast self-examination and physical examination and then promptly contact your physician of any concerns or changes. Adenosis and dense breasts may obscure an underlying neoplasm. Assessment: BI-RADS/ACR category 2 mammogram. Benign Findings. Recommendation Routine screening mammogram of both breasts in 1 year. Electronically Signed By: Artis Randle DO 02/17/21 1317
--- NOTE | 2021-02-17 16:16 | REP ---
INDICATION: PELVIC PAIN COMPARISON: None. TECHNIQUE: Transabdominal pelvic ultrasound with color Doppler evaluation of the ovaries. FINDINGS: Bladder is unremarkable and measures 10.0 x 5.1 x 9.9 cm. Patient is noted to be status post hysterectomy without pelvic fluid or mass lesion identified. Bilateral ovaries are normal in appearance and vascularity without evidence for torsion. Right ovary measures 2.4 x 2.1 x 2.2 cm; R I = 0.56. Left ovary measures 3.0 x 2.9 x 2.4 cm; R I = 0.65. IMPRESSION: Prior hysterectomy. Normal bilateral ovaries and adnexa. <Electronically signed by Manoj Herring > 02/17/21 [id number]
== END ==
LOC: M WHC 13:43
PROVIDERS: ATTEND Obstetrics & Gynecology
DX: Z01.419 Encounter for gynecological examination (general) (routine) without abnormal findings (principal); Z12.31 Encounter for screening mammogram for malignant neoplasm of breast; R10.2 Pelvic and perineal pain; Z78.0 Asymptomatic menopausal state; Z80.3 Family history of malignant neoplasm of breast; Z90.710 Acquired absence of both cervix and uterus
CPT/HCPCS: 76856; 77063; 77067; G0101

== ENCOUNTER → 2021-06-14 | Outpatient (CLI) | payer MEDICARE, MEDICAID ==
[~2021-06-14] MED LIST changes: +FLUO-96 PO; -FLUO20CA20 PO; +LOSA50TA28 PO; -LOSA50TA88 PO
[2021-06-14 13:22] LABS: BASO % 0.5 % (0.0-1.0); EOS # 0.1 10^3/uL (0.0-0.5); EOS % 2.3 % (0.0-3.0); HEMATOCRIT 44.9 % (36.0-47.0); HEMOGLOBIN 15.3 g/dl (12.0-15.5); LYMPH # 1.5 10^3/uL (1.5-5.0); LYMPH % 26.5 % (24.0-44.0); MEAN CORPUSCULAR HEMOGLOBIN 34.1 pg (27.0-33.0); MEAN CORPUSCULAR HGB CONC 34.1 g/dl (32.0-36.5); MONO # 0.4 10^3/uL (0.0-0.8); MONO % 7.4 % (2.0-8.0); NEUTROPHILS # 3.5 10^3/uL (1.5-8.5); NEUTROPHILS % 62.8 % (36.0-66.0); PLATELET COUNT, AUTOMATED 202 10^3/uL (150-450); RED BLOOD COUNT 4.49 10^6/uL (4.00-5.40); WHITE BLOOD COUNT 5.5 10^3/uL (4.0-10.0)
[2021-06-14 13:27] LABS: HEMOGLOBIN A1c 10.6 %
[2021-06-14 13:59] LABS: ALBUMIN 3.6 GM/DL (3.2-5.2); ALT/SGPT 22 U/L (12-78); BILIRUBIN,TOTAL 1.3 MG/DL (0.2-1.0); BLOOD UREA NITROGEN 9 MG/DL (7-18); CALCIUM LEVEL 9.1 MG/DL (8.5-10.1); CARBON DIOXIDE LEVEL 29 MEQ/L (21-32); CHLORIDE LEVEL 101 MEQ/L (98-107); CREATININE FOR GFR 0.63 MG/DL (0.55-1.30); GLOMERULAR FILTRATION RATE > 60.0 (>58); GLUCOSE, FASTING 262 MG/DL (70-100); POTASSIUM SERUM 4.2 MEQ/L (3.5-5.1); SODIUM LEVEL 137 MEQ/L (136-145); TOTAL PROTEIN 7.1 GM/DL (6.4-8.2)
== END ==
LOC: M PLALAB 11:40
PROVIDERS: ATTEND Physician Assistant Medical
DX: E11.3593 Type 2 diabetes mellitus with proliferative diabetic retinopathy without macular edema, bilateral (principal); I10 Essential (primary) hypertension
CPT/HCPCS: 36415; 80053; 83036; 85025; G0463

== ENCOUNTER → 2021-08-15 | Outpatient (CLI) | payer MEDICARE, MEDICAID ==
[~2021-08-15] MED LIST changes: +OMEP-173; -OMEP-218
[2021-08-15 13:39] LABS: HEMOGLOBIN A1c 8.1 %
[2021-08-15 13:51] LABS: BILIRUBIN,DIRECT 0.1 MG/DL (0.0-0.2); BILIRUBIN,TOTAL 0.5 MG/DL (0.2-1.0)
[2021-08-15 14:03] LABS: MALB URINE SIEMENS 47.5 MG/L; MAU/CREAT RATIO 33.9 MCG/MG (0.0-30.0)
== END ==
LOC: M PLALAB 11:08
PROVIDERS: ATTEND Physician Assistant Medical
DX: E11.3593 Type 2 diabetes mellitus with proliferative diabetic retinopathy without macular edema, bilateral (principal); E80.6 Other disorders of bilirubin metabolism

== ENCOUNTER 2021-09-03 17:27 | Emergency (ER) | payer MEDICARE, MEDICAID ==
[~2021-09-03] VITALS: Ht 157.5 cm; Wt 109.2 kg
[2021-09-03] MEDS ORDERED: LANTINJ4 SC (17:45)
[2021-09-03] MEDS ORDERED: IBUP-1022 PO (20:08)
[2021-09-03 20:35] VITALS: BP 135/88
== END 2021-09-03 20:36 | disposition home or self-care (01) ==
LOC: M ED 17:27
DX: M92.61 Juvenile osteochondrosis of tarsus, right ankle (principal); M72.2 Plantar fascial fibromatosis; S93.491A Sprain of other ligament of right ankle, initial encounter; X50.9XXA Other and unspecified overexertion or strenuous movements or postures, initial encounter; Y92.018 Other place in single-family (private) house as the place of occurrence of the external cause; I10 Essential (primary) hypertension; E11.9 Type 2 diabetes mellitus without complications; J45.909 Unspecified asthma, uncomplicated; E78.5 Hyperlipidemia, unspecified; F33.9 Major depressive disorder, recurrent, unspecified; F41.9 Anxiety disorder, unspecified; F43.10 Post-traumatic stress disorder, unspecified; K21.9 Gastro-esophageal reflux disease without esophagitis; Z88.1 Allergy status to other antibiotic agents; Z88.5 Allergy status to narcotic agent; Z79.899 Other long term (current) drug therapy; Z79.84 Long term (current) use of oral hypoglycemic drugs; Z79.4 Long term (current) use of insulin

== ENCOUNTER → 2021-11-23 | Outpatient (REF) | payer MEDICARE, MEDICAID ==
[~2021-11-23] MED LIST changes: +ALPR1TAB3; +CEFD300C PO; +DIFL150T PO; +IBUP-1022 PO; +LANTINJ4 SC; +PHEN-372 PO
[2021-11-23 18:05] LABS: APPEARANCE, URINE HAZY (CLEAR); BACTERIA, URINE AUTO 1+ (NEGATIVE); BILIRUBIN, URINE AUTO NEGATIVE (NEGATIVE); BLOOD, URINE BLOOD 1+ (NEGATIVE); COLOR, URINE YELLOW (YELLOW); GLUCOSE, URINE (UA) AUTO NEGATIVE (NEGATIVE); KETONE, URINE AUTO NEGATIVE (NEGATIVE); LEUKOCYTE ESTERASE, URINE AUTO 1+ (NEGATIVE); MUCUS, URINE SMALL (NEGATIVE); NITRITE, URINE AUTO NEGATIVE (NEGATIVE); PROTEIN, URINE AUTO 1+ mg/dL (NEGATIVE); RBC, URINE AUTO 11 /HPF (0-3); SPECIFIC GRAVITY URINE AUTO 1.021 (1.002-1.035); SQUAMOUS EPITHELIAL CELL UR AU 2 /HPF (0-6); UROBILINOGEN, URINE AUTO 0.2 mg/dL (0.0-2.0); WBC, URINE AUTO 79 /HPF (0-3)
== END ==
LOC: M SFHCWAGY 17:09
PROVIDERS: ATTEND Obstetrics & Gynecology
DX: R30.0 Dysuria (principal)

== ENCOUNTER 2021-11-27 04:59 | Emergency (ER) | payer MEDICAID, MEDICARE ==
[~2021-11-27] VITALS: Ht 157.5 cm; Wt 114.3 kg
[~2021-11-27 04:59] MED LIST changes: -ALPR1TAB3; -CEFD300C PO; -DIFL150T PO; -PHEN-372 PO
[2021-11-27] MEDS ORDERED: ALPR1TAB3 (05:19)
[2021-11-27] MEDS ORDERED: PHEN-372 PO (07:27)
[2021-11-27] MEDS ORDERED: CEFD300C PO (07:27)
[2021-11-27] MEDS ORDERED: CEFDINIR 300 MG CAP (OMNICEF) PO ONE (07:30)
[2021-11-27] MEDS ORDERED: PHENAZOPYRIDINE 100 MG TAB PO ONE (07:30)
[2021-11-27] MEDS ORDERED: DIFL150T PO (08:01)
[2021-11-27 08:10] VITALS: BP 148/71
== END 2021-11-27 08:19 | disposition home or self-care (01) ==
LOC: M ED 04:59
DX: N39.0 Urinary tract infection, site not specified (principal); E11.9 Type 2 diabetes mellitus without complications; I10 Essential (primary) hypertension; F43.10 Post-traumatic stress disorder, unspecified; Z88.1 Allergy status to other antibiotic agents; Z88.5 Allergy status to narcotic agent; Z79.899 Other long term (current) drug therapy; Z79.84 Long term (current) use of oral hypoglycemic drugs; Z79.4 Long term (current) use of insulin

== ENCOUNTER 2022-01-04 17:52 | Emergency (ER) | payer MEDICARE ==
[~2022-01-04] VITALS: Ht 157.5 cm; Wt 116.8 kg
[~2022-01-04 17:52] MED LIST changes: +ALPR1TAB3; +CEFD300C PO; +DIFL150T PO; +PHEN-372 PO
[2022-01-04 23:30] LABS: BASO % 0.4 % (0.0-1.0); EOS # 0.4 10^3/uL (0.0-0.5); EOS % 4.6 % (0.0-3.0); HEMATOCRIT 40.9 % (36.0-47.0); HEMOGLOBIN 13.9 g/dl (12.0-15.5); LYMPH # 2.2 10^3/uL (1.5-5.0); LYMPH % 27.4 % (24.0-44.0); MEAN CORPUSCULAR HEMOGLOBIN 34.2 pg (27.0-33.0); MEAN CORPUSCULAR VOLUME 100.7 fl (80.0-96.0); MONO # 0.6 10^3/uL (0.0-0.8); NEUTROPHILS # 4.7 10^3/uL (1.5-8.5); NEUTROPHILS % 60.1 % (36.0-66.0); PLATELET COUNT, AUTOMATED 194 10^3/uL (150-450); RED BLOOD COUNT 4.06 10^6/uL (4.00-5.40); WHITE BLOOD COUNT 7.9 10^3/uL (4.0-10.0)
[2022-01-04 23:54] LABS: ALBUMIN 3.6 GM/DL (3.2-5.2); ALT/SGPT 16 U/L (12-78); BILIRUBIN,DIRECT 0.2 MG/DL (0.0-0.2); BILIRUBIN,TOTAL 0.7 MG/DL (0.2-1.0); BLOOD UREA NITROGEN 10 MG/DL (7-18); CARBON DIOXIDE LEVEL 31 MEQ/L (21-32); CHLORIDE LEVEL 106 MEQ/L (98-107); CREATININE FOR GFR 0.58 MG/DL (0.55-1.30); GLOMERULAR FILTRATION RATE > 60.0 (>51); GLUCOSE, FASTING 84 MG/DL (70-100); LIPASE 103 U/L (73-393); POTASSIUM SERUM 3.8 MEQ/L (3.5-5.1); SODIUM LEVEL 140 MEQ/L (136-145); TOTAL PROTEIN 6.6 GM/DL (6.4-8.2)
[2022-01-05] MEDS ORDERED: LOSARTAN 50MG TABLET PO ONE ×2 (07:05→12:30)
[2022-01-05 07:27] LABS: NT-PRO BNP 552 PG/ML (<125)
[2022-01-05] MEDS ORDERED: METOPROLOL SUCC (TopROL XL) 50MG **XL** TAB PO ONE (08:05)
[2022-01-05 08:45] LABS: CK-MB VALUE MASS 5.1 NG/ML (<3.6); MB/CK RELATIVE INDEX 12.44 (< OR =4)
[2022-01-05] MEDS ORDERED: NS 1,000 ML IV ONE (11:25)
[2022-01-05] MEDS ORDERED: LOSARTAN 25 MG TAB PO ONE (12:35)
[2022-01-05 12:43] VITALS: BP 175/84
[2022-01-05] MEDS ORDERED: LOSA25TA13 PO (14:02)
[2022-01-05 14:22] VITALS: BP 179/84
== END 2022-01-05 14:31 | disposition home or self-care (01) ==
LOC: M ED 17:52
DX: K80.20 Calculus of gallbladder without cholecystitis without obstruction (principal); I10 Essential (primary) hypertension; K76.0 Fatty (change of) liver, not elsewhere classified; E11.9 Type 2 diabetes mellitus without complications; J45.909 Unspecified asthma, uncomplicated; E78.5 Hyperlipidemia, unspecified; K21.9 Gastro-esophageal reflux disease without esophagitis; Z88.1 Allergy status to other antibiotic agents; Z88.5 Allergy status to narcotic agent; Z79.899 Other long term (current) drug therapy; Z79.84 Long term (current) use of oral hypoglycemic drugs

== ENCOUNTER → 2022-03-13 | Outpatient (CLI) | payer MEDICARE, MEDICAID ==
[~2022-03-13] MED LIST changes: +LOSA25TA13 PO
== END ==
LOC: M WHC 13:54
PROVIDERS: ATTEND Physician Assistant Medical
DX: Z12.31 Encounter for screening mammogram for malignant neoplasm of breast (principal)

== ENCOUNTER → 2022-05-31 | Outpatient (REF) | payer MEDICARE, MEDICAID | LOC: M SFHCPLAZ 16:57 | PROVIDERS: ATTEND Family Medicine | DX: Z53.20 Procedure and treatment not carried out because of patient's decision for unspecified reasons (principal) ==

== ENCOUNTER → 2022-05-31 | Outpatient (CLI) | payer MEDICARE, MEDICAID ==
[2022-05-31 18:06] LABS: CREATININE, URINE 93.1 MG/DL
[2022-05-31 18:08] LABS: MAU/CREAT RATIO 5.3 MCG/MG (0.0-30.0)
[2022-05-31 18:09] LABS: ALBUMIN 3.9 G/DL (3.2-5.2); ALKALINE PHOSPHATASE 62 U/L (46-116); ALT/SGPT 20 U/L (7.0-40); AST/SGOT 23 U/L (<34); BILIRUBIN,TOTAL 0.9 MG/DL (0.3-1.2); BLOOD UREA NITROGEN 8 MG/DL (9-23); CARBON DIOXIDE LEVEL 28 MMOL/L (20-31); CHLORIDE LEVEL 101 MMOL/L (98-107); CHOLESTEROL LEVEL 124 MG/DL (<200); CREATININE FOR GFR 0.57 MG/DL (0.55-1.30); GLOMERULAR FILTRATION RATE > 60.0 (>51); GLUCOSE, FASTING 158 MG/DL (60-100); LDL CHOLESTEROL 35.2 MG/DL (<100); NON-HDL-C 84 MG/DL; POTASSIUM SERUM 4.4 MMOL/L (3.5-5.1); SODIUM LEVEL 139 MMOL/L (136-145); TOTAL PROTEIN 6.9 G/DL (5.7-8.2); TRIGLYCERIDES LEVEL 244 MG/DL (<150)
[2022-05-31 19:20] LABS: HEMOGLOBIN A1c 8.3 % (4.0-6.0)
== END ==
LOC: M PLALAB 14:09
PROVIDERS: ATTEND Family Medicine
DX: R06.09 Other forms of dyspnea (principal); E66.01 Morbid (severe) obesity due to excess calories; I10 Essential (primary) hypertension; E80.6 Other disorders of bilirubin metabolism; E78.00 Pure hypercholesterolemia, unspecified; Z79.899 Other long term (current) drug therapy

== ENCOUNTER → 2022-08-20 | Outpatient (REF) | payer MEDICARE, MEDICAID | LOC: M SFHCWAGY 16:55 | PROVIDERS: ATTEND Nurse Practitioner Family | DX: Z12.4 Encounter for screening for malignant neoplasm of cervix (principal) | CPT/HCPCS: 87624; G0123 ==

== ENCOUNTER 2022-08-25 11:22 | Inpatient (IN) | payer MEDICARE, MEDICAID ==
[~2022-08-25] VITALS: Ht 157.5 cm; Wt 116.5 kg
[~2022-08-25 11:22] MED LIST changes: -ALPR1TAB3; +ALPR1TAB3 PO; -DIAZ10TA2; +DIAZ10TA2 PO; -LAMO100T3; +LAMO100T3 PO; -METO1TAB7; +METO1TAB7 PO; -OMEP-173; +OMEP-173 PO; -QUET100T2; +QUET100T2 PO
[2022-08-25] MEDS ORDERED: LABETALOL 100MG/20ML VIAL IV STA (12:18)
[2022-08-25] MEDS ORDERED: ISOVUE-370 76% 100ML VIAL As Ordered ONE (12:37)
[2022-08-25 12:46] LABS: BASO # 0.1 10^3/uL (0.0-0.2); BASO % 0.8 % (0.0-1.0); EOS # 0.2 10^3/uL (0.0-0.5); HEMATOCRIT 44.1 % (36.0-47.0); HEMOGLOBIN 14.8 g/dl (12.0-15.5); LYMPH # 2.3 10^3/uL (1.5-5.0); LYMPH % 29.3 % (24.0-44.0); MEAN CORPUSCULAR HEMOGLOBIN 34.2 pg (27.0-33.0); MEAN CORPUSCULAR HGB CONC 33.6 g/dl (32.0-36.5); MEAN CORPUSCULAR VOLUME 101.8 fl (80.0-96.0); MONO # 0.4 10^3/uL (0.0-0.8); MONO % 5.3 % (2.0-8.0); NEUTROPHILS # 4.8 10^3/uL (1.5-8.5); NEUTROPHILS % 61.2 % (36.0-66.0); PLATELET COUNT, AUTOMATED 200 10^3/uL (150-450); RED BLOOD COUNT 4.33 10^6/uL (4.00-5.40); WHITE BLOOD COUNT 7.8 10^3/uL (4.0-10.0)
[2022-08-25 13:11] LABS: INR 0.88; PROTHROMBIN TIME 12.1 SECONDS (12.5-14.5)
[2022-08-25 13:12] LABS: PARTIAL THROMBOPLASTIN TIME 22.3 SECONDS (24.8-34.2)
[2022-08-25 13:17] LABS: LIPASE 149 U/L (12-53)
[2022-08-25 13:19] VITALS: BP 173/83
[2022-08-25 13:19] LABS: CPK CREATINE PHOSPHOKINASE 40 U/L (34-145)
[2022-08-25 13:22] LABS: ALBUMIN 3.9 G/DL (3.2-5.2); ALKALINE PHOSPHATASE 60 U/L (46-116); ALT/SGPT 28 U/L (7.0-40); AST/SGOT 28 U/L (<34); BILIRUBIN,DIRECT 0.3 MG/DL (<0.4); BLOOD UREA NITROGEN 10 MG/DL (9-23); CALCIUM LEVEL 9.5 MG/DL (8.5-10.1); CARBON DIOXIDE LEVEL 25 MMOL/L (20-31); CHLORIDE LEVEL 104 MMOL/L (98-107); CK-MB VALUE MASS 3.7 NG/ML (<3.6); CREATININE FOR GFR 0.65 MG/DL (0.55-1.30); FREE T4 0.96 NG/DL (0.89-1.76); GLOMERULAR FILTRATION RATE > 60.0 (>51); GLUCOSE, FASTING 289 MG/DL (60-100); MAGNESIUM LEVEL 1.7 MG/DL (1.8-2.4); MB/CK RELATIVE INDEX 9.25 (< OR =4); POTASSIUM SERUM 3.6 MMOL/L (3.5-5.1); SODIUM LEVEL 138 MMOL/L (136-145)
[2022-08-25] MEDS ORDERED: ASPIRIN 325 MG TAB PO ONE (13:30)
[2022-08-25] MEDS ORDERED: CLOPIDOGREL 300 MG TAB (PLAVIX) PO STA (13:30)
[2022-08-25] MEDS ORDERED: NS 1,000 ML IV ONE (13:30)
[2022-08-25] MEDS ORDERED: MAGNESIUM OXIDE 400MG TAB (MAG-OX) PO ONE (13:55)
[2022-08-25 13:59] LABS: RSV AMPLIFICATION NEGATIVE (NEGATIVE)
[2022-08-25] MEDS ORDERED: ONDANSETRON 4MG 2ML VIAL IV PRN (14:40)
[2022-08-25 15:00] LABS: ERYTHROCYTE SEDIMENTATION RATE 29 mm/hr (0-30)
[2022-08-25] MEDS ORDERED: LABETALOL 100MG/20ML VIAL IV PRN (15:25)
[2022-08-25] MEDS ORDERED: GLUCOSE 4GM CHEW TABLET PO PRN (15:30)
[2022-08-25] MEDS ORDERED: DEXTROSE 50% 50ML SYRINGE IV PRN (15:30)
[2022-08-25] MEDS ORDERED: GLUCAGON INJ 1MG VIAL SC PRN (15:30)
[2022-08-25] MEDS ORDERED: OZEM2INJ SC (15:43)
[2022-08-25] MEDS ORDERED: DULO1CAP6 PO (15:43)
[2022-08-25] MEDS ORDERED: LOSA25TA13 PO (15:43)
[2022-08-25] MEDS ORDERED: METF-838 PO (15:43)
[2022-08-25] MEDS ORDERED: JANU100T PO (15:43)
[2022-08-25] MEDS ORDERED: ROSU10TA6 PO (15:43)
[2022-08-25] MEDS ORDERED: PRAZ2CAP PO (15:43)
[2022-08-25] MEDS ORDERED: MELO7.5T35 PO (15:43)
[2022-08-25] MEDS ORDERED: QUET400T2 PO (15:43)
[2022-08-25] MEDS ORDERED: TOLT2CAP4 PO (15:43)
[2022-08-25] MEDS ORDERED: VENTAER INH (15:43)
[2022-08-25] MEDS ORDERED: HOME MED LIST COMPLETE! XX SCH (15:50)
[2022-08-25 16:03] LABS: HEMOGLOBIN A1c 7.8 % (4.0-6.0)
[2022-08-25] MEDS ORDERED: diazePAM 5MG TABLET PO PRN (16:45)
[2022-08-25] MEDS ORDERED: ALBUTEROL 90 MCG/ACT 8GM HFA INHALER INH PRN (16:45)
[2022-08-25] MEDS ORDERED: ALPRAZolam 0.5 MG TAB PO PRN (16:45)
[2022-08-25 16:48] LABS: CHOLESTEROL LEVEL 157 MG/DL (<200); CHOLESTEROL RISK RATIO 3.54 (<5); FOLATE > 24.0 NG/ML (>5.4); HDL CHOLESTEROL 44.3 MG/DL (>40); LDL CHOLESTEROL 59.7 MG/DL (<100); NON-HDL-C 113 MG/DL; TRIGLYCERIDES LEVEL 265 MG/DL (<150); VITAMIN B12 LEVEL 392 PG/ML (211-911)
[2022-08-25 17:03] VITALS: BP 144/69
[2022-08-25] MEDS: LR 1,000 ML IV SCH (17:30)
[2022-08-25] MEDS: ATORVASTATIN 20 MG TAB PO SCH (17:37)
[2022-08-25] MEDS: INSULIN LISPRO (NovoLOG) PER UNIT SC SCH ×2 (18:42→20:18)
[2022-08-25 20:00] VITALS: BP 126/58
[2022-08-25] MEDS: ENOXAPARIN 40MG/0.4ML SYRINGE (J1650 PER 10MG) SC SCH (20:34)
[2022-08-25] MEDS: LEVEMIR (INSULIN DETEMIR) 1 UNITS/0.01ML SC SCH (20:34)
[2022-08-25] MEDS: lamoTRIgine 100MG TAB PO SCH (20:35)
[2022-08-25] MEDS: DULoxetine 30MG CAPSULE (CYMBALTA) PO SCH (20:36)
[2022-08-25] MEDS: QUEtiapine FUMARATE 200 MG TAB PO SCH (20:37)
[2022-08-25] MEDS: PRAZOSIN 1 MG CAP PO SCH (20:47)
[2022-08-26] VITALS: BP 122/64
[2022-08-26] MEDS: LR 1,000 ML IV SCH (03:45)
[2022-08-26 04:00] VITALS: BP 100/64
[2022-08-26 06:43] LABS: HEMATOCRIT 37.1 % (36.0-47.0); MEAN CORPUSCULAR HEMOGLOBIN 34.5 pg (27.0-33.0); MEAN CORPUSCULAR HGB CONC 32.9 g/dl (32.0-36.5); MEAN CORPUSCULAR VOLUME 104.8 fl (80.0-96.0); PLATELET COUNT, AUTOMATED 171 10^3/uL (150-450); RED BLOOD COUNT 3.54 10^6/uL (4.00-5.40); WHITE BLOOD COUNT 6.5 10^3/uL (4.0-10.0)
[2022-08-26 06:45] LABS: HEMOGLOBIN 12.2 g/dl (12.0-15.5)
[2022-08-26 07:08] LABS: BLOOD UREA NITROGEN 13 MG/DL (9-23); CALCIUM LEVEL 8.7 MG/DL (8.5-10.1); CARBON DIOXIDE LEVEL 28 MMOL/L (20-31); CHLORIDE LEVEL 103 MMOL/L (98-107); CREATININE FOR GFR 0.82 MG/DL (0.55-1.30); GLOMERULAR FILTRATION RATE > 60.0 (>51); GLUCOSE, FASTING 171 MG/DL (60-100); POTASSIUM SERUM 3.7 MMOL/L (3.5-5.1); SODIUM LEVEL 138 MMOL/L (136-145)
[2022-08-26 07:58] VITALS: BP 108/52
[2022-08-26] MEDS ORDERED: MELOXICAM (MOBIC) 7.5 MG TAB PO SCH (09:00)
[2022-08-26] MEDS: INSULIN LISPRO (NovoLOG) PER UNIT SC SCH ×4 (09:11→20:37)
[2022-08-26] MEDS: LEVEMIR (INSULIN DETEMIR) 1 UNITS/0.01ML SC SCH ×2 (09:12→20:31)
[2022-08-26] MEDS: QUEtiapine FUMARATE 100 MG TAB PO SCH (09:13)
[2022-08-26] MEDS: ENOXAPARIN 40MG/0.4ML SYRINGE (J1650 PER 10MG) SC SCH ×2 (09:13→20:32)
[2022-08-26] MEDS: PANTOPRAZOLE 40MG TAB (PROTONIX) PO SCH (09:13)
[2022-08-26] MEDS: CLOPIDOGREL 75 MG TAB PO SCH (09:14)
[2022-08-26] MEDS: ASPIRIN 81MG ENTERIC TABLET PO SCH (09:14)
[2022-08-26] MEDS: DULoxetine 30MG CAPSULE (CYMBALTA) PO SCH ×2 (09:14→20:29)
[2022-08-26] MEDS: ATORVASTATIN 20 MG TAB PO SCH (09:15)
[2022-08-26 12:00] VITALS: BP 112/59
[2022-08-26 14:00] VITALS: BP 123/58
[2022-08-26 20:00] VITALS: BP 138/62
[2022-08-26] MEDS: lamoTRIgine 100MG TAB PO SCH (20:29)
[2022-08-26] MEDS: PRAZOSIN 1 MG CAP PO SCH (20:31)
[2022-08-26] MEDS: QUEtiapine FUMARATE 200 MG TAB PO SCH (20:36)
[2022-08-27] VITALS (8 sets, daily range): BP systolic 112–144; BP diastolic 56–70
[2022-08-27] MEDS: ENOXAPARIN 40MG/0.4ML SYRINGE (J1650 PER 10MG) SC SCH ×2 (09:33→20:58)
[2022-08-27] MEDS: INSULIN LISPRO (NovoLOG) PER UNIT SC SCH ×4 (09:33→20:42)
[2022-08-27] MEDS: LEVEMIR (INSULIN DETEMIR) 1 UNITS/0.01ML SC SCH ×2 (09:34→21:01)
[2022-08-27] MEDS: QUEtiapine FUMARATE 100 MG TAB PO SCH (09:34)
[2022-08-27] MEDS: ACETAMINOPHEN TAB 650MG DOSE (2X325MG) PO PRN ×2 (09:34→21:02)
[2022-08-27] MEDS: PANTOPRAZOLE 40MG TAB (PROTONIX) PO SCH (09:34)
[2022-08-27] MEDS: ATORVASTATIN 20 MG TAB PO SCH (09:35)
[2022-08-27] MEDS: DULoxetine 30MG CAPSULE (CYMBALTA) PO SCH ×2 (09:35→21:00)
[2022-08-27] MEDS: CLOPIDOGREL 75 MG TAB PO SCH (09:35)
[2022-08-27] MEDS: ASPIRIN 81MG ENTERIC TABLET PO SCH (09:35)
[2022-08-27] MEDS: lamoTRIgine 100MG TAB PO SCH (20:59)
[2022-08-27] MEDS: QUEtiapine FUMARATE 200 MG TAB PO SCH (21:01)
[2022-08-27] MEDS: PRAZOSIN 1 MG CAP PO SCH (21:01)
[2022-08-28] VITALS: BP 118/57
[2022-08-28 04:00] VITALS: BP 148/68
[2022-08-28 05:44] LABS: HEMATOCRIT 37.6 % (36.0-47.0); HEMOGLOBIN 12.3 g/dl (12.0-15.5); MEAN CORPUSCULAR HEMOGLOBIN 34.3 pg (27.0-33.0); MEAN CORPUSCULAR HGB CONC 32.7 g/dl (32.0-36.5); MEAN CORPUSCULAR VOLUME 104.7 fl (80.0-96.0); PLATELET COUNT, AUTOMATED 152 10^3/uL (150-450); RED BLOOD COUNT 3.59 10^6/uL (4.00-5.40); WHITE BLOOD COUNT 4.8 10^3/uL (4.0-10.0)
[2022-08-28 08:02] VITALS: BP 140/65
[2022-08-28] MEDS: LEVEMIR (INSULIN DETEMIR) 1 UNITS/0.01ML SC SCH (09:32)
[2022-08-28] MEDS: INSULIN LISPRO (NovoLOG) PER UNIT SC SCH (09:32)
[2022-08-28] MEDS: ASPIRIN 81MG ENTERIC TABLET PO SCH (09:32)
[2022-08-28] MEDS: DULoxetine 30MG CAPSULE (CYMBALTA) PO SCH (09:33)
[2022-08-28] MEDS: ATORVASTATIN 20 MG TAB PO SCH (09:33)
[2022-08-28] MEDS: QUEtiapine FUMARATE 100 MG TAB PO SCH (09:33)
[2022-08-28] MEDS: PANTOPRAZOLE 40MG TAB (PROTONIX) PO SCH (09:33)
[2022-08-28] MEDS: CLOPIDOGREL 75 MG TAB PO SCH (09:33)
[2022-08-28] MEDS: ENOXAPARIN 40MG/0.4ML SYRINGE (J1650 PER 10MG) SC SCH (09:34)
[2022-08-28] MEDS ORDERED: CLOP75TA2 PO (10:09)
[2022-08-28] MEDS ORDERED: ASPI81TAEC PO (10:09)
[2022-08-28] MEDS ORDERED: ATOR1TAB21 PO (10:09)
== END 2022-08-28 14:30 | disposition home health service (06) | DRG 71 ==
LOC: M ED 11:22 → EDBD 11:22 → M ED INP 14:20 → ENRESERV 16:03 → M PCU 16:31
PROVIDERS: ADMIT Internal Medicine; ATTEND Internal Medicine
PROC: B246ZZZ Ultrasonography of Right and Left Heart (ICD-10-PCS; principal; 2022-08-27)
DX: G93.41 Metabolic encephalopathy (principal); G45.9 Transient cerebral ischemic attack, unspecified; R47.01 Aphasia; E87.20 Acidosis, unspecified; I10 Essential (primary) hypertension; E78.5 Hyperlipidemia, unspecified; E11.9 Type 2 diabetes mellitus without complications; F43.10 Post-traumatic stress disorder, unspecified; F41.8 Other specified anxiety disorders; F31.9 Bipolar disorder, unspecified; K21.9 Gastro-esophageal reflux disease without esophagitis; R55 Syncope and collapse; R47.1 Dysarthria and anarthria; I16.0 Hypertensive urgency; Z20.822 Contact with and (suspected) exposure to COVID-19; Z79.84 Long term (current) use of oral hypoglycemic drugs; Z79.899 Other long term (current) drug therapy; Z88.1 Allergy status to other antibiotic agents; R74.8 Abnormal levels of other serum enzymes; E86.0 Dehydration

== ENCOUNTER 2022-09-03 22:55 | Emergency (ER) | payer MEDICARE, MEDICAID ==
[~2022-09-03] VITALS: Ht 157.5 cm; Wt 116.4 kg
[~2022-09-03 22:55] MED LIST changes: +ASPI81TAEC PO; +ATOR1TAB21 PO; +CLOP75TA2 PO; +DULO1CAP6 PO; +JANU100T PO; +MELO7.5T35 PO; +METF-838 PO; +OZEM2INJ SC; +PRAZ2CAP PO; +QUET400T2 PO; +ROSU10TA6 PO; +TOLT2CAP4 PO; +VENTAER INH
[2022-09-03] MEDS ORDERED: NITROGLYCERIN 0.4MG SUBL TABLET SL PRN (23:20)
[2022-09-03 23:30] VITALS: BP 164/84
[2022-09-03 23:37] LABS: BASO # 0.1 10^3/uL (0.0-0.2); BASO % 0.5 % (0.0-1.0); EOS # 0.3 10^3/uL (0.0-0.5); EOS % 3.1 % (0.0-3.0); HEMATOCRIT 45.3 % (36.0-47.0); HEMOGLOBIN 15.1 g/dl (12.0-15.5); LYMPH % 19.9 % (24.0-44.0); MEAN CORPUSCULAR HEMOGLOBIN 34.3 pg (27.0-33.0); MEAN CORPUSCULAR HGB CONC 33.3 g/dl (32.0-36.5); MONO # 0.7 10^3/uL (0.0-0.8); MONO % 6.9 % (2.0-8.0); NEUTROPHILS # 6.8 10^3/uL (1.5-8.5); NEUTROPHILS % 69.2 % (36.0-66.0); PLATELET COUNT, AUTOMATED 232 10^3/uL (150-450); WHITE BLOOD COUNT 9.8 10^3/uL (4.0-10.0)
[2022-09-03 23:49] LABS: INR 0.8; PROTHROMBIN TIME 11.3 SECONDS (12.5-14.5)
[2022-09-03 23:50] LABS: PARTIAL THROMBOPLASTIN TIME 26.3 SECONDS (24.8-34.2)
[2022-09-03 23:51] LABS: LIPASE 38 U/L (12-53)
[2022-09-03 23:52] LABS: D-DIMER QUANT 537.39 ng/ml (<500)
[2022-09-03 23:53] LABS: ALBUMIN 3.7 G/DL (3.2-5.2); ALKALINE PHOSPHATASE 72 U/L (46-116); ALT/SGPT 28 U/L (7.0-40); AST/SGOT 34 U/L (<34); BILIRUBIN,DIRECT 0.3 MG/DL (<0.4); BILIRUBIN,TOTAL 0.9 MG/DL (0.3-1.2); BLOOD UREA NITROGEN 10 MG/DL (9-23); CALCIUM LEVEL 8.7 MG/DL (8.5-10.1); CARBON DIOXIDE LEVEL 32 MMOL/L (20-31); CHLORIDE LEVEL 102 MMOL/L (98-107); CREATININE FOR GFR 0.72 MG/DL (0.55-1.30); GLOMERULAR FILTRATION RATE > 60.0 (>51); GLUCOSE, FASTING 177 MG/DL (60-100); POTASSIUM SERUM 4.4 MMOL/L (3.5-5.1); SODIUM LEVEL 142 MMOL/L (136-145); TOTAL PROTEIN 6.8 G/DL (5.7-8.2)
[2022-09-03 23:54] LABS: CK-MB VALUE MASS 1.9 NG/ML (<3.6); FREE T4 1.03 NG/DL (0.89-1.76)
[2022-09-03 23:55] LABS: CPK CREATINE PHOSPHOKINASE 50 U/L (34-145); THYROID STIMULATING HORMONE 6.399 uIU/ML (0.55-4.78)
[2022-09-04] MEDS ORDERED: ONDANSETRON 4MG 2ML VIAL IV ONE
[2022-09-04] MEDS ORDERED: ASPIRIN 81MG CHEW TABLET PO ONE
[2022-09-04] MEDS ORDERED: ISOVUE-370 76% 100ML VIAL As Ordered ONE (00:31)
[2022-09-04 02:30] VITALS: BP 150/75
== END 2022-09-04 03:03 | disposition home or self-care (01) ==
LOC: M ED 22:55 → EDBD 22:55 → M ED 09-04 03:03
DX: R07.89 Other chest pain (principal); R94.31 Abnormal electrocardiogram [ECG] [EKG]; K80.20 Calculus of gallbladder without cholecystitis without obstruction; R16.0 Hepatomegaly, not elsewhere classified; E11.9 Type 2 diabetes mellitus without complications; I10 Essential (primary) hypertension; E78.5 Hyperlipidemia, unspecified; K21.9 Gastro-esophageal reflux disease without esophagitis; F43.10 Post-traumatic stress disorder, unspecified; F41.9 Anxiety disorder, unspecified; F31.9 Bipolar disorder, unspecified; Z88.1 Allergy status to other antibiotic agents; Z88.5 Allergy status to narcotic agent; Z88.8 Allergy status to other drugs, medicaments and biological substances; Z79.899 Other long term (current) drug therapy; Z79.4 Long term (current) use of insulin; Z79.82 Long term (current) use of aspirin
CPT/HCPCS: 36415; 71046; 71275; 76705; 80048; 80076; 82550; 82553; 83690; 84439; 84443; 84484; 85025; 85379; 85610; 85730; 93005; 93041; 94760; 96374; 99285; J2405; Q9967

== ENCOUNTER → 2022-09-04 | Outpatient (CLI) | payer MEDICARE, MEDICAID | LOC: M PLALAB 11:34 → M PLAIMG 11:34 | PROVIDERS: ATTEND Physician Assistant | DX: M25.511 Pain in right shoulder (principal) ==

== ENCOUNTER → 2022-11-27 | Outpatient (CLI) | payer MEDICARE, MEDICAID ==
[2022-11-27 15:58] LABS: HEMOGLOBIN A1c 6.5 % (4.0-6.0)
== END ==
LOC: M PLALAB 13:59
PROVIDERS: ATTEND Family Medicine
DX: E11.3593 Type 2 diabetes mellitus with proliferative diabetic retinopathy without macular edema, bilateral (principal)

== ENCOUNTER 2022-12-31 17:05 | Emergency (ER) | payer MEDICARE, MEDICAID ==
[~2022-12-31] VITALS: Ht 157.5 cm; Wt 111.9 kg
[2022-12-31 22:42] VITALS: BP 162/82; TEMP 97; O2SAT 100
[2022-12-31] MEDS ORDERED: MELO15TA28 PO (22:43)
== END 2022-12-31 22:47 | disposition home or self-care (01) ==
LOC: EDBD 17:05 → M ED 17:05
DX: R22.42 Localized swelling, mass and lump, left lower limb (principal); M17.12 Unilateral primary osteoarthritis, left knee; M19.072 Primary osteoarthritis, left ankle and foot; E11.9 Type 2 diabetes mellitus without complications; I10 Essential (primary) hypertension; K21.9 Gastro-esophageal reflux disease without esophagitis; Z88.5 Allergy status to narcotic agent; Z88.1 Allergy status to other antibiotic agents; Z79.82 Long term (current) use of aspirin; Z79.899 Other long term (current) drug therapy; Z79.4 Long term (current) use of insulin; Z79.51 Long term (current) use of inhaled steroids; Z79.84 Long term (current) use of oral hypoglycemic drugs

== ENCOUNTER 2023-02-12 10:50 | Emergency (ER) | payer MEDICARE, MEDICAID, OTHER ==
[~2023-02-12] VITALS: Ht 157.5 cm; Wt 106.8 kg
[~2023-02-12 10:50] MED LIST changes: +MELO15TA28 PO
[2023-02-12 10:51] VITALS: BP 136/69; TEMP 97.8; O2SAT 100
[2023-02-12] MEDS ORDERED: BOOSTRIX VACCINE (TETANUS/DIPHTH/ACEL. PERTUSSIS) 0.5ML SYR IM ONE (12:30)
== END 2023-02-12 14:18 | disposition home or self-care (01) ==
LOC: M ED 10:50
DX: Z23 Encounter for immunization (principal); S61.451A Open bite of right hand, initial encounter; W54.0XXA Bitten by dog, initial encounter; I10 Essential (primary) hypertension; E11.9 Type 2 diabetes mellitus without complications; Z88.1 Allergy status to other antibiotic agents; Z88.5 Allergy status to narcotic agent; Z79.899 Other long term (current) drug therapy

== ENCOUNTER 2023-02-18 12:52 | Emergency (ER) | payer MEDICARE, MEDICAID ==
[~2023-02-18] VITALS: Ht 157.5 cm; Wt 108.9 kg
[2023-02-18 12:52] VITALS: BP 184/80; TEMP 98.6; O2SAT 98
[2023-02-18] MEDS ORDERED: LIDOCAINE W/EPINEPHRINE 1% 20ML VIAL SC ONE (16:55)
[2023-02-18] MEDS ORDERED: DOXY-443 PO (17:55)
== END 2023-02-18 18:05 | disposition home or self-care (01) ==
LOC: M ED 12:52
DX: S61.011A Laceration without foreign body of right thumb without damage to nail, initial encounter (principal); W54.0XXA Bitten by dog, initial encounter; Y92.009 Unspecified place in unspecified non-institutional (private) residence as the place of occurrence of the external cause; Y93.K9 Activity, other involving animal care; Y99.8 Other external cause status; E11.9 Type 2 diabetes mellitus without complications; R47.01 Aphasia; I10 Essential (primary) hypertension; Z88.5 Allergy status to narcotic agent; Z88.1 Allergy status to other antibiotic agents; Z79.82 Long term (current) use of aspirin; Z79.899 Other long term (current) drug therapy; Z79.4 Long term (current) use of insulin; Z79.84 Long term (current) use of oral hypoglycemic drugs; Z79.51 Long term (current) use of inhaled steroids

== ENCOUNTER → 2023-02-27 | Outpatient (CLI) | payer MEDICARE, MEDICAID ==
[~2023-02-27] MED LIST changes: +DOXY-443 PO
[2023-02-27 14:05] LABS: HEMOGLOBIN A1c 5.4 % (4.0-6.0)
== END ==
LOC: M PLALAB 11:14
PROVIDERS: ATTEND Family Medicine
DX: E11.3593 Type 2 diabetes mellitus with proliferative diabetic retinopathy without macular edema, bilateral (principal)

== ENCOUNTER → 2023-04-10 | Outpatient (CLI) | payer MEDICARE, MEDICAID ==
[2023-04-10 17:41] LABS: APPEARANCE, URINE HAZY (CLEAR); BACTERIA, URINE AUTO 1+ (NEGATIVE); BILIRUBIN, URINE AUTO NEGATIVE (NEGATIVE); BLOOD, URINE BLOOD NEGATIVE (NEGATIVE); CALCIUM OXALATE CRYSTALS SMALL; COLOR, URINE YELLOW (YELLOW); GLUCOSE, URINE (UA) AUTO NEGATIVE (NEGATIVE); KETONE, URINE AUTO TRACE mg/dL (NEGATIVE); LEUKOCYTE ESTERASE, URINE AUTO NEGATIVE (NEGATIVE); MUCUS, URINE SMALL (NEGATIVE); NITRITE, URINE AUTO NEGATIVE (NEGATIVE); PROTEIN, URINE AUTO NEGATIVE (NEGATIVE); RBC, URINE AUTO 0 /HPF (0-3); SPECIFIC GRAVITY URINE AUTO 1.026 (1.002-1.035); SQUAMOUS EPITHELIAL CELL UR AU 3 /HPF (0-6); UROBILINOGEN, URINE AUTO 0.2 mg/dL (0.0-2.0); WBC, URINE AUTO 1 /HPF (0-3)
[2023-04-10 18:13] LABS: BASO # 0.1 10^3/uL (0.0-0.2); BASO % 0.6 % (0.0-1.0); EOS # 0.3 10^3/uL (0.0-0.5); EOS % 2.9 % (0.0-3.0); HEMATOCRIT 45.6 % (36.0-47.0); HEMOGLOBIN 15.1 g/dl (12.0-15.5); LYMPH # 2.3 10^3/uL (1.5-5.0); LYMPH % 23.3 % (24.0-44.0); MEAN CORPUSCULAR HEMOGLOBIN 34.1 pg (27.0-33.0); MEAN CORPUSCULAR HGB CONC 33.1 g/dl (32.0-36.5); MEAN CORPUSCULAR VOLUME 102.9 fl (80.0-96.0); MONO # 0.7 10^3/uL (0.0-0.8); MONO % 6.9 % (2.0-8.0); NEUTROPHILS # 6.5 10^3/uL (1.5-8.5); NEUTROPHILS % 65.3 % (36.0-66.0); PLATELET COUNT, AUTOMATED 229 10^3/uL (150-450); RED BLOOD COUNT 4.43 10^6/uL (4.00-5.40)
[2023-04-10 18:33] LABS: ALBUMIN 3.5 G/DL (3.2-5.2); ALKALINE PHOSPHATASE 61 U/L (46-116); ALT/SGPT 18 U/L (7.0-40); AST/SGOT 17 U/L (<34); BILIRUBIN,TOTAL 0.8 MG/DL (0.3-1.2); BLOOD UREA NITROGEN 12 MG/DL (9-23); CALCIUM LEVEL 9.2 MG/DL (8.5-10.1); CARBON DIOXIDE LEVEL 32 MMOL/L (20-31); CHLORIDE LEVEL 103 MMOL/L (98-107); CREATININE FOR GFR 0.69 MG/DL (0.55-1.30); GLOMERULAR FILTRATION RATE > 60.0 (>51); GLUCOSE, FASTING 133 MG/DL (60-100); POTASSIUM SERUM 4.4 MMOL/L (3.5-5.1); SODIUM LEVEL 140 MMOL/L (136-145); TOTAL PROTEIN 6.5 G/DL (5.7-8.2)
== END ==
LOC: M PLALAB 14:38
PROVIDERS: ATTEND Nurse Practitioner Family
DX: R06.02 Shortness of breath (principal); R09.89 Other specified symptoms and signs involving the circulatory and respiratory systems; Z79.899 Other long term (current) drug therapy

== ENCOUNTER → 2023-05-07 | Outpatient (REF) | payer MEDICARE, MEDICAID | LOC: M SFHCPLAZ 13:16 | PROVIDERS: ATTEND Family Medicine | DX: J06.9 Acute upper respiratory infection, unspecified (principal) ==

== ENCOUNTER → 2023-05-09 | Outpatient (CLI) | payer MEDICARE, MEDICAID | LOC: M WHC 12:16 | PROVIDERS: ATTEND Family Medicine | DX: Z12.31 Encounter for screening mammogram for malignant neoplasm of breast (principal) ==

== ENCOUNTER → 2023-07-09 | Outpatient (CLI) | payer MEDICARE, MEDICAID | LOC: M WHC 08:03 | PROVIDERS: ATTEND Family Medicine | DX: Z12.31 Encounter for screening mammogram for malignant neoplasm of breast (principal); N63.23 Unspecified lump in the left breast, lower outer quadrant ==

== ENCOUNTER 2023-08-22 23:11 | Emergency (ER) | payer MEDICARE, MEDICAID ==
[~2023-08-22] VITALS: Ht 154.9 cm; Wt 110.0 kg
[2023-08-22 23:34] LABS: VENOUS BASE EXCESS -1.5 (-2.0-2.0); VENOUS HCO3 26.7 MMOL/L (23.0-27.0); VENOUS O2 SATURATION 39.1 % (60.0-80.0); VENOUS PARTIAL PRESSURE CO2 60.5 mmHg (38.0-50.0); VENOUS PARTIAL PRESSURE O2 24.4 mmHg (30.0-50.0); VENOUS PH 7.263 UNITS (7.330-7.430); VENOUS STANDARD HCO3 21.9 MMOL/L; VENOUS TOTAL CO2 28.6 MMOL/L (24.0-28.0)
[2023-08-23 00:02] LABS: LIPASE 52 U/L (12-53)
[2023-08-23 00:04] LABS: ALBUMIN 3.6 G/DL (3.2-5.2); ALKALINE PHOSPHATASE 63 U/L (46-116); ALT/SGPT 19 U/L (7.0-40); AST/SGOT 16 U/L (<34); BILIRUBIN,DIRECT 0.3 MG/DL (<0.4); BLOOD UREA NITROGEN 11 MG/DL (9-23); CALCIUM LEVEL 8.4 MG/DL (8.5-10.1); CARBON DIOXIDE LEVEL 29 MMOL/L (20-31); CHLORIDE LEVEL 108 MMOL/L (98-107); CK-MB VALUE MASS 5.6 NG/ML (<3.6); CREATININE FOR GFR 0.59 MG/DL (0.55-1.30); GLOMERULAR FILTRATION RATE > 60.0 (>51); GLUCOSE, FASTING 203 MG/DL (60-100); POTASSIUM SERUM 3.9 MMOL/L (3.5-5.1); SODIUM LEVEL 141 MMOL/L (136-145); TOTAL PROTEIN 6.5 G/DL (5.7-8.2)
[2023-08-23 00:06] LABS: RSV AMPLIFICATION NEGATIVE (NEGATIVE)
[2023-08-23 00:06] LABS: THYROID STIMULATING HORMONE 5.794 uIU/ML (0.55-4.78)
[2023-08-23 00:13] LABS: CPK CREATINE PHOSPHOKINASE 72 U/L (34-145); MB/CK RELATIVE INDEX 7.77 (< OR =4)
[2023-08-23 00:15] LABS: BASO # 0.1 10^3/uL (0.0-0.2); BASO % 0.7 % (0.0-1.0); EOS # 0.2 10^3/uL (0.0-0.5); EOS % 1.9 % (0.0-3.0); HEMATOCRIT 42.6 % (36.0-47.0); HEMOGLOBIN 13.9 g/dl (12.0-15.5); LYMPH # 2.1 10^3/uL (1.5-5.0); LYMPH % 21.9 % (24.0-44.0); MEAN CORPUSCULAR HEMOGLOBIN 34.5 pg (27.0-33.0); MEAN CORPUSCULAR HGB CONC 32.6 g/dl (32.0-36.5); MEAN CORPUSCULAR VOLUME 105.7 fl (80.0-96.0); MONO # 0.6 10^3/uL (0.0-0.8); MONO % 6.3 % (2.0-8.0); NEUTROPHILS # 6.4 10^3/uL (1.5-8.5); NEUTROPHILS % 68.8 % (36.0-66.0); PLATELET COUNT, AUTOMATED 250 10^3/uL (150-450); RED BLOOD COUNT 4.03 10^6/uL (4.00-5.40); WHITE BLOOD COUNT 9.4 10^3/uL (4.0-10.0)
[2023-08-23] MEDS: LOSARTAN 50MG TABLET PO ONE (00:27)
[2023-08-23 01:57] LABS: CK-MB VALUE MASS 4.4 NG/ML (<3.6)
[2023-08-23 02:00] LABS: MB/CK RELATIVE INDEX 7.85 (< OR =4)
[2023-08-23] MEDS: dexAMETHasone 20MG/5ML VIAL IV ONE (03:06)
[2023-08-23] MEDS: hydrALAZINE 20MG/ML 1ML VIAL IV STA (04:40)
[2023-08-23] MEDS ORDERED: LABETALOL 100MG/20ML VIAL As Ordered ONE (05:06)
[2023-08-23] MEDS ORDERED: ONDANSETRON 4MG 2ML VIAL As Ordered ONE (05:07)
[2023-08-23] MEDS: ONDANSETRON 4MG 2ML VIAL IV ONE (05:11)
[2023-08-23 05:13] VITALS: BP 226/102
[2023-08-23] MEDS: LABETALOL 100MG/20ML VIAL IV STA (05:13)
[2023-08-23 06:07] VITALS: BP 187/78; TEMP 98; O2SAT 93
== END 2023-08-23 06:44 | disposition home or self-care (01) ==
LOC: M ED 23:11 → EDBD 23:11 → M ED 08-23 06:44
DX: R07.9 Chest pain, unspecified (principal); I16.0 Hypertensive urgency; F41.9 Anxiety disorder, unspecified; K21.9 Gastro-esophageal reflux disease without esophagitis; F31.9 Bipolar disorder, unspecified; F43.10 Post-traumatic stress disorder, unspecified; Z88.5 Allergy status to narcotic agent; Z88.8 Allergy status to other drugs, medicaments and biological substances; Z88.1 Allergy status to other antibiotic agents; Z79.82 Long term (current) use of aspirin; Z79.899 Other long term (current) drug therapy; Z79.51 Long term (current) use of inhaled steroids
CPT/HCPCS: 70450; 71045; 80048; 80076; 82550; 82553; 82803; 83690; 83880; 84443; 84484; 85025; 85379; 87040; 87486; 87581; 87631; 87633; 87798; 93005; 93041; 94760; 96374; 96375; 99285; J0360; J1100; J1920; J2405

== ENCOUNTER → 2023-09-05 | Outpatient (CLI) | payer MEDICARE, MEDICAID ==
[2023-09-05 17:57] LABS: CHOLESTEROL RISK RATIO 3.66 (<5); HDL CHOLESTEROL 41.8 MG/DL (>40); LDL CHOLESTEROL 70.6 MG/DL (<100); NON-HDL-C 111.2 MG/DL
[2023-09-05 17:58] LABS: CREATININE, URINE 165.4 MG/DL; MAU/CREAT RATIO 4.8 MCG/MG (0.0-30.0)
[2023-09-05 18:14] LABS: HEMOGLOBIN A1c 6.5 % (4.0-6.0)
== END ==
LOC: M PLALAB 15:02
PROVIDERS: ATTEND Family Medicine
DX: E11.3593 Type 2 diabetes mellitus with proliferative diabetic retinopathy without macular edema, bilateral (principal); E78.00 Pure hypercholesterolemia, unspecified; E66.01 Morbid (severe) obesity due to excess calories

== ENCOUNTER 2024-01-03 12:42 | Observation (INO) | payer MEDICARE, MEDICAID ==
[~2024-01-03] VITALS: Ht 157.5 cm; Wt 95.6 kg
[~2024-01-03 12:42] MED LIST changes: +DOXY-323 PO; -DOXY-443 PO; -ROSU10TA6 PO; +ROSU10TA61 PO; -ROSU40TA4; +ROSU40TA63
[2024-01-03] MEDS ORDERED: ISOVUE-370 76% 100ML VIAL As Ordered ONE (13:00)
[2024-01-03 14:14] LABS: BASO % 0.4 % (0.0-1.0); EOS # 0.1 10^3/uL (0.0-0.5); HEMATOCRIT 42.1 % (36.0-47.0); HEMOGLOBIN 14.4 g/dl (12.0-15.5); LYMPH # 1.6 10^3/uL (1.5-5.0); LYMPH % 22.3 % (24.0-44.0); MEAN CORPUSCULAR HEMOGLOBIN 34.4 pg (27.0-33.0); MEAN CORPUSCULAR HGB CONC 34.2 g/dl (32.0-36.5); MEAN CORPUSCULAR VOLUME 100.7 fl (80.0-96.0); MONO # 0.4 10^3/uL (0.0-0.8); MONO % 5.7 % (2.0-8.0); NEUTROPHILS # 4.9 10^3/uL (1.5-8.5); NEUTROPHILS % 69.2 % (36.0-66.0); PLATELET COUNT, AUTOMATED 176 10^3/uL (150-450); RED BLOOD COUNT 4.18 10^6/uL (4.00-5.40)
[2024-01-03 14:28] LABS: INR 0.99; PARTIAL THROMBOPLASTIN TIME 20.8 SECONDS (24.8-34.2); PROTHROMBIN TIME 12.8 SECONDS (12.5-14.5)
[2024-01-03 14:46] LABS: ETHYL ALCOHOL (ETHANOL) < 0.003 % (0.000-0.010)
[2024-01-03 14:47] LABS: HCG, SERUM QUALITATIVE NEGATIVE (NEGATIVE)
[2024-01-03 14:48] LABS: BLOOD UREA NITROGEN 9 MG/DL (9-23); CARBON DIOXIDE LEVEL 29 MMOL/L (20-31); CHLORIDE LEVEL 106 MMOL/L (98-107); CK-MB VALUE MASS 4.9 NG/ML (<3.6); CPK CREATINE PHOSPHOKINASE 57 U/L (34-145); CREATININE FOR GFR 0.77 MG/DL (0.55-1.30); GLOMERULAR FILTRATION RATE > 60.0 (>51); GLUCOSE, FASTING 91 MG/DL (60-100); MB/CK RELATIVE INDEX 8.59 (< OR =4); POTASSIUM SERUM 3.7 MMOL/L (3.5-5.1); SODIUM LEVEL 141 MMOL/L (136-145)
[2024-01-03] MEDS ORDERED: TIRZ12.5 SC (18:12)
[2024-01-03] MEDS ORDERED: FLUTISP NARES (18:12)
[2024-01-03] MEDS ORDERED: ASPI81CH33 PO (18:12)
[2024-01-03] MEDS ORDERED: QUET50TA4 PO (18:12)
[2024-01-03] MEDS ORDERED: ARIP10TA32 PO (18:12)
[2024-01-03] MEDS ORDERED: LOSA100T46 PO (18:12)
[2024-01-03] MEDS ORDERED: DULO1CAP5 PO (18:12)
[2024-01-03] MEDS ORDERED: LOPE1CAP5 PO (18:12)
[2024-01-03] MEDS ORDERED: LAMO200T3 PO (18:12)
[2024-01-03] MEDS ORDERED: SIME80TA16 PO (18:12)
[2024-01-03] MEDS ORDERED: OMEP40CA5 PO (18:12)
[2024-01-03] MEDS ORDERED: HOME MED LIST COMPLETE! XX SCH (18:15)
[2024-01-03] MEDS ORDERED: diazePAM 5MG TABLET PO PRN (20:15)
[2024-01-03] MEDS: OMEPRAZOLE 20MG CAP PO SCH (22:12)
[2024-01-03] MEDS: QUEtiapine FUMARATE 50MG TAB PO SCH (22:12)
[2024-01-03] MEDS: lamoTRIgine 100MG TAB PO SCH (22:13)
[2024-01-03] MEDS: PRAZOSIN 1 MG CAP PO SCH (22:13)
[2024-01-03] MEDS: ROSUVASTATIN 10 MG TAB (CRESTOR) PO SCH (22:14)
[2024-01-03] MEDS: LOSARTAN 50MG TABLET PO SCH (22:14)
[2024-01-04] MEDS: ARIPiprazole 10 MG TAB PO SCH (10:21)
[2024-01-04] MEDS: DULoxetine 30MG CAPSULE (CYMBALTA) PO SCH (10:21)
[2024-01-04] MEDS: SIMETHICONE 80MG CHEW TAB PO SCH (10:21)
[2024-01-04] MEDS: METOPROLOL SUCC (TopROL XL) 50MG **XL** TAB PO SCH (10:22)
[2024-01-04] MEDS: ASPIRIN 81MG CHEW TABLET PO SCH (10:22)
[2024-01-04] MEDS: diazePAM 5MG TABLET PO SCH ×3 (10:22→20:11)
[2024-01-04] MEDS: ENOXAPARIN 40MG/0.4ML SYRINGE (J1650 PER 10MG) SC SCH (10:23)
[2024-01-04 10:52] VITALS: BP 128/82; TEMP 97.5; O2SAT 93
[2024-01-04 12:00] VITALS: BP 131/84; TEMP 97.5; O2SAT 92
[2024-01-04] MEDS: ACETAMINOPHEN TAB 650MG DOSE (2X325MG) PO PRN (14:12)
[2024-01-04] MEDS: FLUTICASONE PROP 0.05% NASAL SPRAY 16 GM (FLONASE) NARES SCH (14:14)
[2024-01-04 20:00] VITALS: BP 147/85; TEMP 97.9; O2SAT 95
[2024-01-05 06:04] VITALS: BP 123/70; TEMP 97; O2SAT 97
[2024-01-05 08:43] VITALS: BP 126/71
[2024-01-05] MEDS: diazePAM 10 MG TAB PO SCH (08:43)
[2024-01-05] MEDS: BISACODYL 10MG SUPP PR ONE (10:42)
[2024-01-05 11:45] LABS: APPEARANCE, URINE HAZY (CLEAR); BACTERIA, URINE AUTO 1+ (NEGATIVE); BILIRUBIN, URINE AUTO NEGATIVE (NEGATIVE); BLOOD, URINE BLOOD NEGATIVE (NEGATIVE); COLOR, URINE AMBER (YELLOW); GLUCOSE, URINE (UA) AUTO NEGATIVE (NEGATIVE); KETONE, URINE AUTO NEGATIVE (NEGATIVE); LEUKOCYTE ESTERASE, URINE AUTO NEGATIVE (NEGATIVE); MUCUS, URINE LARGE (NEGATIVE); NITRITE, URINE AUTO NEGATIVE (NEGATIVE); PROTEIN, URINE AUTO 1+ mg/dL (NEGATIVE); RBC, URINE AUTO 2 /HPF (0-3); SPECIFIC GRAVITY URINE AUTO 1.036 (1.002-1.035); SQUAMOUS EPITHELIAL CELL UR AU 6 /HPF (0-6); WBC, URINE AUTO 4 /HPF (0-3)
[2024-01-05 12:00] VITALS: BP 125/72; TEMP 97.2; O2SAT 97
[2024-01-05] MEDS ORDERED: PRAZ2CAP PO (12:44)
[2024-01-05] MEDS ORDERED: DIAZ10TA2 PO (12:44)
[2024-01-06] MEDS ORDERED: ASPI81CH33 PO (10:07)
[2024-01-06] MEDS ORDERED: SIME80TA16 PO (10:07)
== END 2024-01-05 14:03 | disposition home or self-care (01) ==
LOC: EDBD 12:42 → M ED 12:42 → M ED INP 12:43 → M MSPAV 01-04 10:48
PROVIDERS: ADMIT Internal Medicine Nephrology; ATTEND Internal Medicine Nephrology
DX: R42 Dizziness and giddiness (principal); R26.81 Unsteadiness on feet; F31.9 Bipolar disorder, unspecified; F43.10 Post-traumatic stress disorder, unspecified; F42.9 Obsessive-compulsive disorder, unspecified; F13.20 Sedative, hypnotic or anxiolytic dependence, uncomplicated; I10 Essential (primary) hypertension; E78.5 Hyperlipidemia, unspecified; E66.9 Obesity, unspecified; E11.3599 Type 2 diabetes mellitus with proliferative diabetic retinopathy without macular edema, unspecified eye; K21.9 Gastro-esophageal reflux disease without esophagitis; N32.81 Overactive bladder; K76.0 Fatty (change of) liver, not elsewhere classified; Z79.82 Long term (current) use of aspirin; Z79.899 Other long term (current) drug therapy; Z87.891 Personal history of nicotine dependence; Z88.5 Allergy status to narcotic agent; Z88.1 Allergy status to other antibiotic agents
CPT/HCPCS: 70450; 70496; 70498; 71045; 80047; 80048; 81001; 82077; 82550; 82553; 84484; 84703; 85025; 85610; 85730; 86850; 86900; 86901; 93005; 93041; 94760; 96372; 97161; 97530; 99285; G0378; J1650; Q9967

== ENCOUNTER → 2024-02-24 | Outpatient (REF) | payer MEDICARE, MEDICAID ==
[~2024-02-24] MED LIST changes: +ARIP10TA32 PO; +ASPI81CH33 PO; +DULO1CAP5 PO; +FLUTISP NARES; +LAMO200T3 PO; +LOPE1CAP5 PO; +LOSA100T46 PO; +OMEP40CA5 PO; +QUET50TA4 PO; +SIME80TA16 PO; +TIRZ12.5 SC
== END ==
LOC: M SFHCWAGY 16:57
PROVIDERS: ATTEND Nurse Practitioner Family
DX: L29.2 Pruritus vulvae (principal)

== ENCOUNTER → 2024-07-10 | Outpatient (CLI) | payer MEDICARE, MEDICAID ==
[~2024-07-10] MED LIST changes: -ARIP10TA32 PO; +ARIP10TA63 PO; -DOXY-323 PO; +DOXY-441 PO; +GLIP10TA15 PO; -GLIP10TA6 PO; -ROSU40TA63; +ROSU40TA81
[2024-07-10 16:45] LABS: BLOOD UREA NITROGEN 18 MG/DL (9-23); CALCIUM LEVEL 9.1 MG/DL (8.5-10.1); CARBON DIOXIDE LEVEL 32 MMOL/L (20-31); CHLORIDE LEVEL 110 MMOL/L (98-107); CHOLESTEROL LEVEL 150 MG/DL (<200); CHOLESTEROL RISK RATIO 3.23 (<5); CREATININE FOR GFR 0.74 MG/DL (0.55-1.30); GLOMERULAR FILTRATION RATE > 60.0 (>51); GLUCOSE, FASTING 65 MG/DL (60-100); HDL CHOLESTEROL 46.4 MG/DL (>40); LDL CHOLESTEROL 83.4 MG/DL (<100); NON-HDL-C 103.6 MG/DL; POTASSIUM SERUM 4.5 MMOL/L (3.5-5.1); SODIUM LEVEL 143 MMOL/L (136-145); TRIGLYCERIDES LEVEL 101 MG/DL (<150)
[2024-07-10 16:47] LABS: CREATININE, URINE 179.6 MG/DL
[2024-07-10 16:48] LABS: MAU/CREAT RATIO 1.6 MCG/MG (0.0-30.0)
[2024-07-10 17:13] LABS: HEMOGLOBIN A1c 4.3 % (4.0-6.0)
== END ==
LOC: M PLALAB 12:33
PROVIDERS: ATTEND Family Medicine
DX: E11.3593 Type 2 diabetes mellitus with proliferative diabetic retinopathy without macular edema, bilateral (principal); E78.00 Pure hypercholesterolemia, unspecified; E66.01 Morbid (severe) obesity due to excess calories

== ENCOUNTER → 2024-09-07 | Outpatient (CLI) | payer MEDICARE, MEDICAID | LOC: M WHC 10:09 | PROVIDERS: ATTEND Nurse Practitioner Family | DX: Z12.31 Encounter for screening mammogram for malignant neoplasm of breast (principal) ==

== ENCOUNTER → 2024-11-05 | Outpatient (CLI) | payer MEDICARE, MEDICAID | LOC: M PLAIMG 10:00 | PROVIDERS: ATTEND Family Medicine | DX: S30.0XXA Contusion of lower back and pelvis, initial encounter (principal); X58.XXXA Exposure to other specified factors, initial encounter; Y92.9 Unspecified place or not applicable; Y93.9 Activity, unspecified; Y99.9 Unspecified external cause status ==

== ENCOUNTER → 2025-01-20 | Outpatient (REF) | payer MEDICARE, MEDICAID ==
[2025-01-20 18:43] LABS: APPEARANCE, URINE HAZY (CLEAR); BACTERIA, URINE AUTO 1+ (NEGATIVE); BILIRUBIN, URINE AUTO NEGATIVE (NEGATIVE); BLOOD, URINE BLOOD NEGATIVE (NEGATIVE); CALCIUM OXALATE CRYSTALS SMALL; GLUCOSE, URINE (UA) AUTO NEGATIVE (NEGATIVE); KETONE, URINE AUTO NEGATIVE (NEGATIVE); LEUKOCYTE ESTERASE, URINE AUTO NEGATIVE (NEGATIVE); MUCUS, URINE MODERATE (NEGATIVE); NITRITE, URINE AUTO NEGATIVE (NEGATIVE); PROTEIN, URINE AUTO NEGATIVE (NEGATIVE); RBC, URINE AUTO 5 /HPF (0-3); SPECIFIC GRAVITY URINE AUTO 1.025 (1.002-1.035); SQUAMOUS EPITHELIAL CELL UR AU 3 /HPF (0-6); UROBILINOGEN, URINE AUTO 0.2 mg/dL (0.0-2.0); WBC, URINE AUTO 1 /HPF (0-3)
== END ==
LOC: M LAB REF 17:22
PROVIDERS: ATTEND Physician Assistant
DX: N39.0 Urinary tract infection, site not specified (principal)

== ENCOUNTER → 2025-04-13 | Outpatient (CLI) | payer MEDICARE, MEDICAID ==
[~2025-04-13] MED LIST changes: -IBUP-1022 PO; +IBUP600T42 PO
== END ==
LOC: M PLAIMG 13:58
PROVIDERS: ATTEND Nurse Practitioner Family
DX: K59.00 Constipation, unspecified (principal)

== ENCOUNTER → 2025-04-30 | Outpatient (CLI) | payer MEDICARE, MEDICAID ==
[~2025-04-30] MED LIST changes: -ROSU10TA61 PO; +ROSU10TA90 PO
[2025-04-30 15:50] LABS: MALB URINE SIEMENS < 3.0 MG/L
[2025-04-30 15:52] LABS: ALT/SGPT 16 U/L (7.0-40); AST/SGOT 19 U/L (<34); CALCIUM LEVEL 9.7 MG/DL (8.5-10.1); CARBON DIOXIDE LEVEL 29 MMOL/L (20-31); CHLORIDE LEVEL 106 MMOL/L (98-107); CHOLESTEROL LEVEL 147 MG/DL (<200); CHOLESTEROL RISK RATIO 2.83 (<5); CREATININE FOR GFR 0.77 MG/DL (0.55-1.30); CREATININE, URINE 107.8 MG/DL; GLOMERULAR FILTRATION RATE > 90.0 (>51); LDL CHOLESTEROL 73.5 MG/DL (<100); NON-HDL-C 95.1 MG/DL; POTASSIUM SERUM 4.4 MMOL/L (3.5-5.1); SODIUM LEVEL 143 MMOL/L (136-145); TRIGLYCERIDES LEVEL 108 MG/DL (<150)
[2025-04-30 16:57] LABS: ESTIMATED AVERAGE GLUCOSE 77.0 MG/DL (60-110)
== END ==
LOC: M PLALAB 12:50
PROVIDERS: ATTEND Family Medicine
DX: E78.00 Pure hypercholesterolemia, unspecified (principal); E11.3593 Type 2 diabetes mellitus with proliferative diabetic retinopathy without macular edema, bilateral

== ENCOUNTER → 2025-05-13 | Outpatient (REF) | payer MEDICARE, MEDICAID ==
[2025-05-13 15:56] LABS: APPEARANCE, URINE CLEAR (CLEAR); BACTERIA, URINE AUTO 1+ (NEGATIVE); BILIRUBIN, URINE AUTO NEGATIVE (NEGATIVE); BLOOD, URINE BLOOD NEGATIVE (NEGATIVE); GLUCOSE, URINE (UA) AUTO NEGATIVE (NEGATIVE); KETONE, URINE AUTO NEGATIVE (NEGATIVE); LEUKOCYTE ESTERASE, URINE AUTO NEGATIVE (NEGATIVE); MUCUS, URINE SMALL (NEGATIVE); NITRITE, URINE AUTO NEGATIVE (NEGATIVE); PROTEIN, URINE AUTO NEGATIVE (NEGATIVE); RBC, URINE AUTO 3 /HPF (0-3); SPECIFIC GRAVITY URINE AUTO 1.017 (1.002-1.035); SQUAMOUS EPITHELIAL CELL UR AU 1 /HPF (0-6); UROBILINOGEN, URINE AUTO 0.2 mg/dL (0.0-2.0); WBC, URINE AUTO 1 /HPF (0-3)
== END ==
LOC: M SMT 15:33
PROVIDERS: ATTEND Urology
DX: N39.41 Urge incontinence (principal)